=== PATIENT | female | born 1975 | race Caucasian/White ===

== ENCOUNTER 2018-04-03 09:51 | Emergency (ER) | payer BC ==
[2018-04-03] MEDS ORDERED: CYCLOBENZAPRINE 10 MG TAB PO STA (10:07)
[2018-04-03] MEDS ORDERED: KETOROLAC 30 MG/ML 1 ML VIAL IVP STA (10:07)
[2018-04-03] MEDS ORDERED: SODIUM CHLORIDE 0.9% 500 ML 500 ML IV STA (10:07)
[2018-04-03] MEDS ORDERED: ASPIRIN 81 MG PO STA (10:07)
--- NOTE | 2018-04-03 10:11 | ED ---
Chest Pain HPI - General Chief Complaint: Chest Pain Stated Complaint: Chest pain Time Seen by Provider: 04/03/18 09:58 Source: patient Mode of arrival: ambulatory Limitations: no limitations - History of Present Illness Initial Comments: 42-year-old female patient presents to the emergency department today for evaluation of right mid back pain and chest tightness. Patient states that back pain started Monday evening when she was switching laundry from the washer to the dryer. Patient states that she felt an immediate sharp pain to the area has been having increasing pain since. She denies any radiating pain to the legs. Denies any numbness or tingling to the lower extremities. Denies any saddle anesthesia or loss of bowel or bladder control. Patient states that she has had some mild muscle aches and pains of the back would never anything this severe. States that she is also having some chest tightness that started last evening. Patient states that the tightness has been constant since its onset. She denies any shortness of breath, sweats, nausea, vomiting, dizziness , or weakness. Patient does have family history of cardiac disease, father had heart transplant at age 42 with history of myocardial infarction. Patient denies any smoking history. Does not currently take any medications but does have a personal history of mitral valve prolapse and tachycardia. Patient denies any recent rash, fever, chills, diarrhea, constipation, hematuria, dysuria, urinary urgency, urinary frequency, headache, visual changes, or any other complaints. - Related Data Home Medications Medication Instructions Recorded Confirmed Ergocalciferol [Vitamin D2] 50,000 unit PO SA 04/03/18 04/03/18 Nortriptyline HCl 75 mg PO 04/03/18 04/03/18 QUEtiapine FUMARATE 50 mg PO HS 04/03/18 04/03/18 Previous Rx's Medication Instructions Recorded Cyclobenzaprine [Flexeril] 10 mg PO TID #15 tab 04/03/18 Ibuprofen [Motrin] 600 mg PO Q8HR PRN #30 tab 04/03/18 Allergies Allergy/AdvReac Type Severity Reaction Status Date / Time No Known Allergies Allergy Verified 04/03/18 10:13 Review of Systems ROS Statement: Those systems with pertinent positive or pertinent negative responses have been documented in the HPI. ROS Other: All systems not noted in ROS Statement are negative. EKG Findings - EKG Comments: EKG Findings:: EKG obtained at 1004 shows normal sinus rhythm with a prolonged QT interval. T-wave inversion in V3 and V4. Ventricular rate is 97, MD interval 202, QRS duration 80, QTc 534, QTC 678. No evidence of ST elevation or depression. Past Medical History Additional Past Medical History / Comment(s): tachycardia, mitral valve History of Any Multi-Drug Resistant Organisms: None Reported Past Surgical History: Adenoidectomy, Tonsillectomy Past Psychological History: Bipolar Smoking Status: Never smoker Past Alcohol Use History: None Reported Past Drug Use History: None Reported General Exam Limitations: no limitations General appearance: alert, in no apparent distress, other (This is a well- developed, well-nourished adult female patient in no acute distress. Vital signs upon presentation are temperature 97.7F, pulse 100, respirations 20, blood pressure 167/85, pulse ox 98% on room air.) Eye exam: Present: normal appearance, PERRL, EOMI. Absent: scleral icterus, conjunctival injection, periorbital swelling ENT exam: Present: normal exam, normal oropharynx, mucous membranes moist Respiratory exam: Present: normal lung sounds bilaterally. Absent: respiratory distress, wheezes, rales, rhonchi, stridor Cardiovascular Exam: Present: regular rate, normal rhythm, normal heart sounds. Absent: systolic murmur, diastolic murmur, rubs, gallop, clicks GI/Abdominal exam: Present: soft, normal bowel sounds. Absent: distended, tenderness, guarding, rebound, rigid Back exam: Present: normal inspection, tenderness (Tenderness over the right mid back musculature). Absent: vertebral tenderness Neurological exam: Present: alert, oriented X3, CN II-XII intact, other ( Strength in all 4 extremities is 5/5.) Psychiatric exam: Present: normal affect, normal mood Skin exam: Present: warm, dry, intact, normal color. Absent: rash Course Vital Signs 04/03/18 04/03/18 04/03/18 09:52 10:04 12:24 Temperature 97.7 F 97.8 F Pulse Rate 100 85 Respiratory 20 18 17 Rate Blood Pressure 167/85 152/99 O2 Sat by Pulse 98 95 Oximetry Chest Pain MDM - MDM RADIOLOGY: Two-view x-ray of the chest is obtained. Report was reviewed in its entirety. Impression by Dr. Ponce shows chronic-appearing changes, possible bronchitis or asthma. Is some patchy posterior basilar opacity in the lateral view the could represent atelectasis and less likely early infiltrate. MDM: 42-year-old female patient presents to emergency department today for complaints of right thoracic back pain. She is also reporting some mild chest tightness is started last night. Physical examination does reveal some musculoskeletal tenderness to the right mid back. Back pain started while she was doing laundry on Monday. Lungs are clear to auscultation with good air movement. Patient is not coughing. Labs reviewed and were unremarkable. Troponin negative. Two-view x-ray of the chest did reveal some atelectasis or early infiltrate however patient has no fever, no coughing, no shortness of breath services more likely atelectasis. I did discuss findings and results with the patient. She is instructed to follow-up with her primary care physician for recheck in 1-2 days. Will give ibuprofen and Flexeril for mechanical back pain. Return parameters were discussed in detail. She verbalizes understanding and agrees with this plan. Disposition Clinical Impression: Back strain, Chest pain Disposition: HOME SELF-CARE Condition: Good Instructions: Chest Pain (ED), Thoracic Back Strain (ED) Additional Instructions: Take medications as directed. Alternate heat to the painful area. Follow-up with your primary care physician for recheck in 1-2 days. Return immediately for any new, worsening, or concerning symptoms. Prescriptions: Cyclobenzaprine [Flexeril] 10 mg PO TID #15 tab Ibuprofen [Motrin] 600 mg PO Q8HR PRN #30 tab PRN Reason: Pain Is patient prescribed a controlled substance at d/c from ED?: No Referrals: Nonstaff,Physician [Primary Care Provider] - 1-2 days Time of Disposition: 12:06
[2018-04-03 10:42] LABS: Basophils # (A) 0.1 k/uL (0-0.2); Basophils % (A) 1 %; Eosinophils # (A) 0.3 k/uL (0-0.7); Eosinophils % (A) 4 %; HCT 41.7 % (34.0-46.0); HGB 13.9 gm/dL (11.4-16.0); Lymphocytes # (A) 1.6 k/uL (1.0-4.8); Lymphocytes % (A) 26 %; MCH 29.3 pg (25.0-35.0); MCHC 33.4 g/dL (31.0-37.0); MCV 87.7 fL (80.0-100.0); Mean Platelet Volume 7.3; Monocytes # (A) 0.3 k/uL (0-1.0); Monocytes % (A) 5 %; Neutrophils # (A) 3.9 k/uL (1.3-7.7); Neutrophils % (A) 62 %; Platelet Count 228 k/uL (150-450); RBC 4.75 m/uL (3.80-5.40); RDW 14.2 % (11.5-15.5); WBC 6.3 k/uL (3.8-10.6)
--- NOTE | 2018-04-03 10:50 | XR ---
EXAMINATION TYPE: XR chest 2V DATE OF EXAM: 04/03/2018 COMPARISON: None HISTORY: 42-year-old female with chest pain TECHNIQUE: PA and lateral views FINDINGS: The cardiomediastinal silhouette, aorta, and pulmonary vasculature are within normal limits. Mild int erstitial prominence in the chronic appearance. There is some patchy posterior basilar opacity on the lateral view. No pleural effusion. IMPRESSION: Chronic-appearing changes, possible bronchitis or asthma. There is some patchy posterior basilar opac ity on the lateral view that could represent atelectasis and less likely early infiltrate.
[2018-04-03 10:52] LABS: ALT 52 U/L (9-52); AST 43 U/L (14-36); Alkaline Phosphatase 51 U/L (38-126); Anion Gap 7 mmol/L; Blood Urea Nitrogen 10 mg/dL (7-17); Calcium 9.3 mg/dL (8.4-10.2); Carbon Dioxide 24 mmol/L (22-30); Chloride 108 mmol/L (98-107); Glucose 148 mg/dL (74-99); Magnesium 1.8 mg/dL (1.6-2.3); Potassium 4.4 mmol/L (3.5-5.1); Sodium 139 mmol/L (137-145); Total Bilirubin 0.5 mg/dL (0.2-1.3); Total Protein 6.8 g/dL (6.3-8.2)
[2018-04-03 10:54] LABS: Partial Thromboplastin Time 22.9 sec (22.0-30.0); Prothrombin Time 10.7 sec (9.0-12.0)
[2018-04-03 11:06] LABS: Creatine Kinase 65 U/L (30-135)
[2018-04-03 11:19] LABS: Creatine Kinase MB <0.2 ng/mL (0.0-2.4); Troponin I <0.012 ng/mL (0.000-0.034)
[2018-04-03 11:52] LABS: Appearance,Urine Cloudy (Clear); Bacteria,Urine Rare /hpf; Bilirubin,Urine Negative (Negative); Blood,Urine Large (Negative); Color,Urine Yellow; Glucose,Urine (UA) Negative (Negative); Ketones,Urine Negative (Negative); Leukocyte Esterase,Urine Small (Negative); Mucus,Urine Occasional /hpf; Nitrite,Urine Negative (Negative); PH, Urine 5.5 (5.0-8.0); Protein,Urine Trace (Negative); RBC,Urine 178 /hpf (0-5); Specific Gravity,Urine 1.014 (1.001-1.035); Squamous Epithelial Cell,Urine 21 /hpf (0-4); Urobilinogen,Urine <2.0 mg/dL (<2.0); WBC,Urine 6 /hpf (0-5)
[2018-04-03] MEDS ORDERED: CYCLOBENZAPRINE 10MG STARTER 3 TAB BTL PO STA (12:04)
[2018-04-03] MEDS ORDERED: IBUPROFEN 600 MG STARTER PACK 4 TAB BTL PO STA (12:04)
[2018-04-03 12:25] VITALS: BP 152/99; PULSE 85; RESP 17; TEMP 97.8
== END 2018-04-03 12:25 | disposition home or self-care (01) ==
LOC: EC 09:51
DX: S29.012A Strain of muscle and tendon of back wall of thorax, initial encounter (principal); R07.89 Other chest pain; R91.8 Other nonspecific abnormal finding of lung field; F31.9 Bipolar disorder, unspecified; Z79.899 Other long term (current) drug therapy; Z82.49 Family history of ischemic heart disease and other diseases of the circulatory system; X58.XXXA Exposure to other specified factors, initial encounter
CPT/HCPCS: 36415; 93005; 80053; 82550; 82553; 83735; 84484; 85025; 85610; 85730; 81001; 71046; 99285; 96374; 96361; J1885

== ENCOUNTER → 2019-09-17 | Outpatient (CLI) | payer BC ==
[2019-09-17 12:04] LABS: Basophils # (A) 0.1 k/uL (0-0.2); Basophils % (A) 1 %; Eosinophils # (A) 0.2 k/uL (0-0.7); Eosinophils % (A) 2 %; HCT 46.3 % (34.0-46.0); HGB 15.5 gm/dL (11.4-16.0); Lymphocytes # (A) 2.3 k/uL (1.0-4.8); Lymphocytes % (A) 30 %; MCH 30.2 pg (25.0-35.0); MCHC 33.6 g/dL (31.0-37.0); MCV 90.1 fL (80.0-100.0); Mean Platelet Volume 8.1; Monocytes # (A) 0.3 k/uL (0-1.0); Monocytes % (A) 4 %; Neutrophils # (A) 4.7 k/uL (1.3-7.7); Neutrophils % (A) 61 %; Platelet Count 275 k/uL (150-450); RBC 5.14 m/uL (3.80-5.40); RDW 13.3 % (11.5-15.5); WBC 7.6 k/uL (3.8-10.6)
[2019-09-17 19:40] LABS: African American GFR (CKD) 103.9 (60.0-200.0); Albumin 4.8 g/dL (3.80-4.90); Albumin/Globulin Ratio 2.4 (1.60-3.17); Anion Gap 12.6 mmol/L (4.00-12.00); BUN/Creat Ratio 12.5 Ratio (12.00-20.00); Calcium 9.8 mg/dL (8.7-10.3); Carbon Dioxide 22.4 mmol/L (21.6-31.8); Chol/HDL Ratio 4.67; Non-African American GFR(CKD) 89.7 (60.0-200.0); Potassium 4.1 mmol/L (3.5-5.5); Total Bilirubin 0.4 mg/dL (0.2-1.2); Total Protein 6.8 g/dL (6.2-8.2)
== END | disposition home or self-care (01) ==
LOC: LABWHC1 10:28
PROVIDERS: ATTEND Internal Medicine Cardiovascular Disease
DX: R07.9 Chest pain, unspecified (principal); R00.2 Palpitations
CPT/HCPCS: 36415; 80053; 80061; 84443; 85025

== ENCOUNTER → 2020-11-13 | Outpatient (CLI) | payer BC ==
[2020-11-13 09:28] LABS: Creatinine,Urine Random 84.9 mg/dL; Protein/Creatinine Ratio,Urine 0.601
[2020-11-13 11:19] LABS: Basophils # (A) 0.04 X 10*3/uL (0.00-0.10); Basophils % (A) 0.5 %; Eosinophils # (A) 0.18 X 10*3/uL (0.04-0.35); Eosinophils % (A) 2.4 %; HCT 43.1 % (37.2-46.3); HGB 14.4 g/dL (12.0-15.0); Lymphocytes % (A) 30.2 %; MCH 29.6 pg (27.0-32.0); MCHC 33.4 g/dL (32.0-37.0); MCV 88.7 fL (80.0-97.0); Mean Platelet Volume 11.5 fL (9.5-12.2); Monocytes # (A) 0.47 X 10*3/uL (0.20-1.00); Monocytes % (A) 6.2 %; Neutrophils # (A) 4.61 X 10*3/uL (1.80-7.70); Neutrophils % (A) 60.4 %; Platelet Count 271 X 10*3/uL (140-440); RBC 4.86 X 10*6/uL (4.10-5.20); RDW 13.2 % (11.5-14.5); WBC 7.62 X 10*3/uL (4.50-10.00)
[2020-11-13 11:33] LABS: Basophils # (A) 0.06 X 10*3/uL (0.00-0.10); Basophils % (A) 0.7 %; Eosinophils # (A) 0.48 X 10*3/uL (0.04-0.35); Eosinophils % (A) 5.5 %; HCT 35.9 % (37.2-46.3); HGB 10.8 g/dL (12.0-15.0); Lymphocytes # (A) 2.17 X 10*3/uL (0.90-5.00); Lymphocytes % (A) 24.7 %; MCH 26.2 pg (27.0-32.0); MCHC 30.1 g/dL (32.0-37.0); MCV 86.9 fL (80.0-97.0); Mean Platelet Volume 9.7 fL (9.5-12.2); Monocytes # (A) 0.47 X 10*3/uL (0.20-1.00); Monocytes % (A) 5.3 %; Neutrophils # (A) 5.52 X 10*3/uL (1.80-7.70); Neutrophils % (A) 62.8 %; Platelet Count 289 X 10*3/uL (140-440); RBC 4.13 X 10*6/uL (4.10-5.20); RDW 13.4 % (11.5-14.5); WBC 8.79 X 10*3/uL (4.50-10.00)
[2020-11-13 13:25] LABS: African American GFR (CKD) 70.2 (60.0-200.0); Albumin 4.7 g/dL (3.80-4.90); Albumin/Globulin Ratio 1.96 (1.60-3.17); Anion Gap 11.7 mmol/L (4.00-12.00); BUN/Creat Ratio 20.91 Ratio (12.00-20.00); Calcium 9.6 mg/dL (8.7-10.3); Carbon Dioxide 23.3 mmol/L (21.6-31.8); Chol/HDL Ratio 3.74; Globulin 2.4 g/dL (1.6-3.3); LDL Cholesterol,Calculated 54.4 mg/dL (0.0-131.0); Non-African American GFR(CKD) 60.6 (60.0-200.0); Total Bilirubin 0.3 mg/dL (0.3-1.2); Total Protein 7.1 g/dL (6.2-8.2); VLDL Calculation 52.6 mg/dL (5.00-40.00)
[2020-11-13 14:58] LABS: Hemoglobin A1C 6.6 % (4.0-6.0)
[2020-11-13 15:18] LABS: % Iron Saturation 15.51 (12.00-45.00); African American GFR (CKD) 89.5 (60.0-200.0); Albumin 4.6 g/dL (3.80-4.90); Anion Gap 13.8 mmol/L (4.00-12.00); BUN/Creat Ratio 14.44 Ratio (12.00-20.00); Calcium 9.7 mg/dL (8.7-10.3); Carbon Dioxide 19.2 mmol/L (21.6-31.8); Globulin 2.3 g/dL (1.6-3.3); Magnesium 1.9 mg/dL (1.5-2.4); Non-African American GFR(CKD) 77.2 (60.0-200.0); Phosphorus 3.8 mg/dL (2.4-5.1); Potassium 4.1 mmol/L (3.5-5.5); Total Bilirubin 0.4 mg/dL (0.3-1.2); Total Protein 6.9 g/dL (6.2-8.2)
== END | disposition home or self-care (01) ==
LOC: LABWHC1 07:27
DX: Z00.00 Encounter for general adult medical examination without abnormal findings (principal); F31.81 Bipolar II disorder; E55.9 Vitamin D deficiency, unspecified; E88.81 Metabolic syndrome and other insulin resistance
CPT/HCPCS: 36415; 80053; 80061; 82306; 82570; 83036; 83540; 83550; 83735; 83970; 84100; 84156; 84443; 85025

== ENCOUNTER 2022-10-28 08:55 | Observation (INO) | payer BC ==
[2022-10-28 09:45] LABS: Basophils % (A) 0 %; Eosinophils # (A) 0.1 k/uL (0-0.7); Eosinophils % (A) 2 %; HCT 40.9 % (34.0-46.0); HGB 14.5 gm/dL (11.4-16.0); Lymphocytes # (A) 1.9 k/uL (1.0-4.8); Lymphocytes % (A) 28 %; MCH 31.9 pg (25.0-35.0); MCHC 35.4 g/dL (31.0-37.0); Mean Platelet Volume 8.5; Monocytes # (A) 0.4 k/uL (0-1.0); Monocytes % (A) 6 %; Neutrophils # (A) 4.2 k/uL (1.3-7.7); Neutrophils % (A) 61 %; Platelet Count 172 k/uL (150-450); RBC 4.55 m/uL (3.80-5.40); RDW 14.3 % (11.5-15.5); WBC 6.9 k/uL (3.8-10.6)
[2022-10-28 10:01] LABS: ALT 35 U/L (4-34); AST 28 U/L (14-36); African American GFR (CKD) >90 (>60 ml/min/1.73 sqM); Albumin 3.7 g/dL (3.5-5.0); Alkaline Phosphatase 66 U/L (38-126); Anion Gap 11 mmol/L; Blood Urea Nitrogen 7 mg/dL (7-17); Calcium 8.7 mg/dL (8.4-10.2); Carbon Dioxide 20 mmol/L (22-30); Chloride 106 mmol/L (98-107); Glucose 212 mg/dL (74-99); Non-African American GFR(CKD) >90 (>60 ml/min/1.73 sqM); Potassium 3.7 mmol/L (3.5-5.1); Sodium 137 mmol/L (137-145); Total Bilirubin 0.7 mg/dL (0.2-1.3); Total Protein 6.3 g/dL (6.3-8.2)
--- NOTE | 2022-10-28 10:07 | XR ---
EXAMINATION TYPE: XR chest 2V DATE OF EXAM: 10/28/2022 COMPARISON: NONE HISTORY: Chest pain TECHNIQUE: Frontal and lateral views of the chest are obtained. FINDINGS: There is no focal air space opacity. No evidence for pneumothorax. No pleural effusion. The cardiac silhouette size is within normal limits. The osseous structures are grossly intact. IMPRESSION: 1. No acute cardiopulmonary process.
[2022-10-28 10:09] LABS: Partial Thromboplastin Time 21.9 sec (22.0-30.0); Prothrombin Time 10.9 sec (9.0-12.0)
--- NOTE | 2022-10-28 10:11 | ED ---
SOB HPI - General Chief Complaint: Shortness of Breath Stated Complaint: Low O2/SOB Time Seen by Provider: 10/28/22 09:08 Source: patient Mode of arrival: ambulatory Limitations: no limitations - History of Present Illness Initial Comments: Patient is a 46-year-old female presenting to the emergency room with complaints of difficulty in breathing with hypoxemia noted at home. She reports that she started with an albuterol inhaler for oxygen levels in the upper 80s at home but has continued to be persistently in the upper 80s low 90s despite use of the inhaler with continued dyspneic feeling. She is complaining of chest heaviness midsternal which is reproducible in addition to her shortness of breath. She states that she was attending PT for her chronic back pain with sciatica which was improving with physical therapy and yesterday she received a significant deep tissue massage to her back and since that time she has had pain in her ribs and her increased difficulty in breathing with chest heaviness. She denies any orthopnea, sleep apnea, diaphoresis, cough, congestion, abdominal pain, nausea, vomiting, dizziness, headache, fevers or chills. She has a past medical history significant for bipolar depression and chronic back pain along with intermittent tachycardia an obesity. - Related Data Home Medications Medication Instructions Recorded Confirmed Nortriptyline HCl 75 mg PO HS 04/03/18 10/28/22 QUEtiapine FUMARATE 50 mg PO HS 04/03/18 10/28/22 Albuterol Sulfate [Albuterol 2 puff INHALATION RT-QID PRN 10/28/22 10/28/22 Sulfate Hfa] Ergocalciferol [Vitamin D2 (1250 1,250 mcg PO TORIBIO 10/28/22 10/28/22 Mcg = 90776 Iu)] L.acidoph,Paracasei, B.lactis 1 cap PO HS 10/28/22 10/28/22 [Probiotic] Allergies Allergy/AdvReac Type Severity Reaction Status Date / Time No Known Allergies Allergy Verified 10/28/22 12:35 Review of Systems ROS Statement: Those systems with pertinent positive or pertinent negative responses have been documented in the HPI. ROS Other: All systems not noted in ROS Statement are negative. Past Medical History Additional Past Medical History / Comment(s): tachycardia, mitral valve History of Any Multi-Drug Resistant Organisms: None Reported Past Surgical History: Adenoidectomy, Tonsillectomy Past Psychological History: Bipolar Smoking Status: Never smoker Past Alcohol Use History: None Reported Past Drug Use History: None Reported General Exam Limitations: no limitations General appearance: alert, in no apparent distress Head exam: Present: atraumatic, normocephalic, normal inspection Respiratory exam: Present: chest wall tenderness, decreased breath sounds (Bibasal). Absent: respiratory distress, wheezes, rales, rhonchi, stridor, accessory muscle use Cardiovascular Exam: Present: regular rate, normal rhythm, normal heart sounds. Absent: systolic murmur, diastolic murmur, rubs, gallop, clicks GI/Abdominal exam: Present: soft, normal bowel sounds. Absent: distended, tenderness, guarding, rebound, rigid Extremities exam: Present: normal inspection, normal capillary refill. Absent: pedal edema, joint swelling, calf tenderness Back exam: Present: normal inspection, full ROM, tenderness (Generalized upper). Absent: muscle spasm, paraspinal tenderness, vertebral tenderness Neurological exam: Present: alert, oriented X3, CN II-XII intact Psychiatric exam: Present: normal affect, normal mood Skin exam: Present: warm, dry, intact, normal color. Absent: rash Course Vital Signs 10/28/22 10/28/22 10/28/22 08:57 09:00 12:23 Temperature 98.2 F 99.0 F Pulse Rate 98 85 Respiratory 20 16 Rate Blood Pressure 145/94 124/85 O2 Sat by Pulse 93 L 93 L 94 L Oximetry Medical Decision Making - Medical Decision Making Was pt. sent in by a medical professional or institution (, PA, CERTIFIED PHYSICIAN ASSISTANT, urgent ca re, hospital, or senior living...) When possible be specific @ -No Did you speak to anyone other than the patient for history (EMS, parent, family, police, friend...)? What history was obtained from this source @ -No Did you review nursing and triage notes (agree or disagree)? Why? @ -I reviewed and agree with nursing and triage notes Were old charts reviewed (outside hosp., previous admission, EMS record, old EKG, old radiological studies, urgent care reports/EKG's, senior living records)? Report findings @ -No old charts were reviewed Differential Diagnosis (chest pain, altered mental status, abdominal pain women, abdominal pain men, vaginal bleeding, weakness, fever, dyspnea, syncope, headache, dizziness, GI bleed, back pain, seizure, CVA, palpatations, mental health, musculoskeletal)? @ -Differential Dyspnea: Coronary syndrome, arrhythmia, tamponade, asthma, COPD, pulmonary embolism, pneumonia, pneumothorax, pulmonary effusion, anaphylaxis, diabetic ketoacidosis, flailed chest, pulmonary contusion, diaphragmatic rupture, anemia, neuromuscular, this is not meant to be an all-inclusive list. EKG interpreted by me (3pts min.). @ -Sinus rhythm, ventricular rate 92 bpm, MD interval 195 ms, QRS duration 79 ms, QT/QTC 325/425 ms, PRT axes 17, -29, -2 X-rays interpreted by me (1pt min.). @ -Chest x-ray two-view: No acute cardiopulmonary process, no consolidation, infiltrate or pleural effusion X-ray bilateral ribs: No acute osseous fractures or dislocations. CT interpreted by me (1pt min.). @ -CTA chest: Bilateral PEs and the U/S interpreted by me (1pt. min.). @ -None done What testing was considered but not performed or refused? (CT, X-rays, U/S, labs)? Why? @ -None What meds were considered but not given or refused? Why? @ -Analgesics offered and declined. Did you discuss the management of the patient with other professionals (professionals i.e. , PA, CERTIFIED PHYSICIAN ASSISTANT, lab, RT, psych nurse, oncology social work, metal coater operator, teacher, corporate development officer, binder caser)? Give summary @ -No however my attending Dr. Cisneros spoke with the radiologist regarding callback for positive pulmonary emboli. Was smoking cessation discussed for >3mins.? @ -No Was critical care preformed (if so, how long)? @ -No Were there social determinants of health that impacted care today? How? (Homelessness, low income, unemployed, alcoholism, drug addiction, transportation, low edu. Level, literacy, decrease access to med. care, penitentiary, rehab)? @ -No Was there de-escalation of care discussed even if they declined (Discuss DNR or withdrawal of care, Hospice)? DNR status @ -No What co-morbidities impacted this encounter? (DM, HTN, Smoking, COPD, CAD, Cancer, CVA, ARF, Chemo, Hep., AIDS, mental health diagnosis, sleep apnea, morbid obesity)? @ -None Was patient admitted / discharged? Hospital course, mention meds given and route, prescriptions, significant lab abnormalities, going to OR and other pertinent info. @ -46-year-old female presenting to the emergency room with complaints of difficulty in breathing with hypoxemia noted at home. No significant change with an albuterol inhaler. Complaining of chest heaviness midsternal which is reproducible in addition to her shortness of breath. Will start workup for dyspnea with EKG, chest x-ray, x-ray of ribs given pain after manipulation the low probability of fracture, CBC, CMP, magnesium, troponin, lactic acid, d-dimer and viral swab for influenza, RSV and COVID. Analgesics offered and declined. Saturating 91-92% on room air will keep on room air at this time. Chest x-ray without any acute cardiopulmonary process, EKG shows sinus rhythm without any acute changes, CBC without abnormalities. Coags show low PTT at 21.9, PTT and INR normal. D-dimer elevated 2.76, CMP with elevated ALT at 35 normal AST and bilirubin. Random glucose elevated at 212. Carbon dioxide low at 20 all of remaining electrolytes normal including potassium and magnesium. Renal function normal. Troponin negative. Viral swabbing for Covid, RSV and influenza are negative. Will proceed with CTA of the chest to evaluate for PE and aortic dissection in the setting of elevated d-dimer with shortness of breath with mild hypoxemia and chest heaviness. CT of the chest demonstrate bilateral PEs per radiologist report no evidence of right-sided heart strain. Echocardiogram and high intensity heparin infusion started. Findings discussed with patient regarding identification of bilateral pulmonary emboli and the need for anticoagulation. She verbalized understanding of her diagnosis and denied any questions due to her mother previously having pulmonary emboli since well. Dr. Bauer page multiple times with no callback as he is; patient does not live locally will place admission to him with consult to pulmonary and vascular. Will limit patient in stable condition on high intensity heparin therapy for further evaluation and treatment of bilateral pulmonary emboli. Undiagnosed new problem with uncertain prognosis? @ -No Drug Therapy requiring intensive monitoring for toxicity (Heparin, Nitro, Insulin, Cardizem)? @ -No Were any procedures done? @ -No Diagnosis/symptom? @ - bilateral pulmonary emboli Acute, or Chronic, or Acute on Chronic? @ -Acute Uncomplicated (without systemic symptoms) or Complicated (systemic symptoms)? @ - Complicated Side effects of treatment? @ -No Exacerbation, Progression, or Severe Exacerbation? @ -No Poses a threat to life or bodily function? How? (Chest pain, [place], MA, pneumonia, PE, COPD, DKA, ARF, appy, cholecystitis, CVA, Diverticulitis, Homicidal, Suicidal, threat to staff... and all critical care pts) @ -Yes, risk for worsening hypoxemia and respiratory arrest. Case discussed with Dr. Cisneros. - Lab Data Result diagrams: 10/28/22 09:18 10/28/22 09:18 Lab Results 10/28/22 10/28/22 10/28/22 Range/Units 09:18 09:18 09:18 WBC 6.9 (3.8-10.6) k/uL RBC 4.55 (3.80-5.40) m/uL Hgb 14.5 (11.4-16.0) gm/dL Hct 40.9 (34.0-46.0) % MCV 90.0 (80.0-100.0) fL MCH 31.9 (25.0-35.0) pg MCHC 35.4 (31.0-37.0) g/dL RDW 14.3 (11.5-15.5) % Plt Count 172 (150-450) k/uL MPV 8.5 Neutrophils % 61 % Lymphocytes % 28 % Monocytes % 6 % Eosinophils % 2 % Basophils % 0 % Neutrophils # 4.2 (1.3-7.7) k/uL Lymphocytes # 1.9 (1.0-4.8) k/uL Monocytes # 0.4 (0-1.0) k/uL Eosinophils # 0.1 (0-0.7) k/uL Basophils # 0.0 (0-0.2) k/uL PT 10.9 (9.0-12.0) sec INR 1.0 (<1.2) APTT 21.9 L (22.0-30.0) sec D-Dimer 2.76 H (<0.60) mg/L FEU Sodium 137 (137-145) mmol/L Potassium 3.7 (3.5-5.1) mmol/L Chloride 106 (98-107) mmol/L Carbon Dioxide 20 L (22-30) mmol/L Anion Gap 11 mmol/L BUN 7 (7-17) mg/dL Creatinine 0.64 (0.52-1.04) mg/dL Est GFR (CKD-EPI)AfAm >90 (>60 ml/min/1.73 sqM) Est GFR (CKD-EPI)NonAf >90 (>60 ml/min/1.73 sqM) Glucose 212 H (74-99) mg/dL Plasma Lactic Acid Charly (0.7-2.0) mmol/L Calcium 8.7 (8.4-10.2) mg/dL Magnesium 2.0 (1.6-2.3) mg/dL Total Bilirubin 0.7 (0.2-1.3) mg/dL AST 28 (14-36) U/L ALT 35 H (4-34) U/L Alkaline Phosphatase 66 (38-126) U/L Troponin I (0.000-0.034) ng/mL Total Protein 6.3 (6.3-8.2) g/dL Albumin 3.7 (3.5-5.0) g/dL Influenza Type A (PCR) (Not Detectd) Influenza Type B (PCR) (Not Detectd) RSV (PCR) (Not Detectd) SARS-CoV-2 (PCR) (Not Detectd) 10/28/22 10/28/22 10/28/22 Range/Units 09:18 09:18 09:30 WBC (3.8-10.6) k/uL RBC (3.80-5.40) m/uL Hgb (11.4-16.0) gm/dL Hct (34.0-46.0) % MCV (80.0-100.0) fL MCH (25.0-35.0) pg MCHC (31.0-37.0) g/dL RDW (11.5-15.5) % Plt Count (150-450) k/uL MPV Neutrophils % % Lymphocytes % % Monocytes % % Eosinophils % % Basophils % % Neutrophils # (1.3-7.7) k/uL Lymphocytes # (1.0-4.8) k/uL Monocytes # (0-1.0) k/uL Eosinophils # (0-0.7) k/uL Basophils # (0-0.2) k/uL PT (9.0-12.0) sec INR (<1.2) APTT (22.0-30.0) sec D-Dimer (<0.60) mg/L FEU Sodium (137-145) mmol/L Potassium (3.5-5.1) mmol/L Chloride (98-107) mmol/L Carbon Dioxide (22-30) mmol/L Anion Gap mmol/L BUN (7-17) mg/dL Creatinine (0.52-1.04) mg/dL Est GFR (CKD-EPI)AfAm (>60 ml/min/1.73 sqM) Est GFR (CKD-EPI)NonAf (>60 ml/min/1.73 sqM) Glucose (74-99) mg/dL Plasma Lactic Acid Charly 1.3 (0.7-2.0) mmol/L Calcium (8.4-10.2) mg/dL Magnesium (1.6-2.3) mg/dL Total Bilirubin (0.2-1.3) mg/dL AST (14-36) U/L ALT (4-34) U/L Alkaline Phosphatase (38-126) U/L Troponin I <0.012 (0.000-0.034) ng/mL Total Protein (6.3-8.2) g/dL Albumin (3.5-5.0) g/dL Influenza Type A (PCR) Not Detected (Not Detectd) Influenza Type B (PCR) Not Detected (Not Detectd) RSV (PCR) Not Detected (Not Detectd) SARS-CoV-2 (PCR) Not Detected (Not Detectd) - Radiology Data Radiology results: report reviewed, image reviewed Disposition Clinical Impression: Pulmonary embolism Disposition: ADMITTED IP TO THIS [facility] Condition: Stable Referrals: Nonstaff,Physician [REFERRING] - 1-2 days Time of Disposition: 11:43
--- NOTE | 2022-10-28 10:48 | XR ---
EXAMINATION TYPE: XR ribs bilateral DATE OF EXAM: 10/28/2022 COMPARISON: NONE HISTORY: 46-year-old female bilateral posterior rib pain after injury TECHNIQUE: 9 views FINDINGS: No displaced rib fractures seen on either side. No pneumothorax or pleural effusion identified. IMPRESSION: No displaced rib fracture identified.
--- NOTE | 2022-10-28 11:21 | CT ---
EXAMINATION TYPE: CT angio chest DATE OF EXAM: 10/28/2022 COMPARISON: None HISTORY: Elevated D-dimer; SOB CT DLP: 591.6 mGycm CONTRAST: CT chest with contrast and 3D reconstruction with MIP imaging is performed without and with IV Contra st, patient injected with 100 ml mL of Isovue 370. Contrast-enhanced CT of the chest was performed through the course of the pulmonary arteries with alexander g and mediastinal window settings submitted. 3D reconstruction with MIP imaging was also performed. PULMONARY ARTERIES: Moderate pulmonary embolism noted within the main pulmonary arteries bilaterally right greater than left. There are also filling defects seen within third order and subsegmental bran ches bilaterally within the right lower lobe, left lower lobe and left upper lobe. No evidence for ri ght heart strain at this time. No saddle component identified. LUNGS: The lungs are clear and free of infiltrate. Mild compressive atelectasis left lung base. No pu lmonary nodule or mass is detected. No pleural effusion. MEDIASTINUM: Thoracic aorta is of normal caliber. Small hiatal hernia noted. The heart is not enlarg ed. No evidence for mediastinal mass. No mediastinal lymph nodes greater than 1cm. HILAR STRUCTURES: No evidence for mass. No hilar lymph nodes greater than 1 cm. UPPER ABDOMEN: Partially imaged left renal cyst. IMPRESSION: 1. Findings are compatible with pulmonary embolism as discussed above. No evidence for right heart s train.
[2022-10-28] MEDS ORDERED: HEPARIN SODIUM 1,000 UN/ML (10ML VL) IV PRN (11:23)
[2022-10-28] MEDS ORDERED: HEPARIN SODIUM 1,000 UN/ML (10ML VL) IV ONE (11:23)
[2022-10-28] MEDS ORDERED: NALOXONE 0.4 MG/ML 1 ML VIAL IV PRN (11:43)
[2022-10-28] MEDS: HEPARIN SOD,PORK IN 0.45% NACL 25,000 UNIT in 0.45% NACL 1 250ML.BAG IV SCH ×2 (12:24→20:38)
--- NOTE | 2022-10-28 14:31 | P.GSCN ---
History of Present Illness Consult date: 10/28/22 Reason for Consult: Pulmonary embolism Requesting physician: Kyleigh Castillo History of present illness: This is a pleasant 46-year-old female with a past medical history of tachycardia and mitral valve prolapse presented to the emergency department with complaints of shortness of breath and having difficulty catching her breath. Patient states she had pulse oximetry at home and she was in the 70s and 80% on her o xygen saturation. She used an albuterol hand inhaler twice with no improvement so she came to the emergency department for further evaluation. Patient had blood work that showed a positive d-dimer. She underwent a CT angiogram of the chest which reported moderate pulmonary embolism noted within main pulmonary arteries bilaterally right greater than left. Filling defects seen within third order and subsegmental branches bilaterally within the right lower lobe, left lower lobe and left upper lobe. No evidence for right heart strain. No saddle component identified. Patient states she still feels some heaviness in her chest like she just can't catch her breath. She is currently not on any oxygen supplementation. Oxygen saturation fluctuating between high 80s and low 90s. Patient does have dark black nail gel on. Once nail gel was removed oxygen saturation maintaining and 9495 percentile on room air. Heart rate 89 blood pressure 124/85. She denies any previous history of DVT or pulmonary embolism. States her mother has a history of sarcoidosis and was first diagnosed as a pulmonary embolism. She does state that she did drive long car ride about 3-4 weeks ago to [place] from [place]. She has also noted some sciatic and low back pain with radiation down her left leg. She's also noted some swelling in her left lower extremity and ankle. She thought that this was related to a previous ankle injury. She is currently on a heparin drip. Review of Systems A 14 point review systems was completed all pertinent positives and negatives as stated in the HPI. Past Medical History Additional Past Medical History / Comment(s): tachycardia, mitral valve History of Any Multi-Drug Resistant Organisms: None Reported Past Surgical History: Adenoidectomy, Tonsillectomy Past Psychological History: Bipolar Smoking Status: Never smoker Past Alcohol Use History: None Reported Past Drug Use History: None Reported Medications and Allergies Home Medications Medication Instructions Recorded Confirmed Type Nortriptyline HCl 75 mg PO HS 04/03/18 10/28/22 History QUEtiapine FUMARATE 50 mg PO HS 04/03/18 10/28/22 History Albuterol Sulfate [Albuterol 2 puff INHALATION RT-QID PRN 10/28/22 10/28/22 History Sulfate Hfa] Ergocalciferol [Vitamin D2 (1250 1,250 mcg PO TORIBIO 10/28/22 10/28/22 History Mcg = 33149 Iu)] L.acidoph,Paracasei, B.lactis 1 cap PO HS 10/28/22 10/28/22 History [Probiotic] Allergies Allergy/AdvReac Type Severity Reaction Status Date / Time No Known Allergies Allergy Verified 10/28/22 12:35 Surgical - Exam Vital Signs Temp Pulse Resp BP Pulse Ox 98.2 F 98 20 145/94 93 L 10/28/22 08:57 10/28/22 08:57 10/28/22 08:57 10/28/22 08:57 10/28/22 08:57 General appearance: The patient is alert, oriented, appears in no acute distress. HET: Head is normocephalic and atraumatic. Pupils are equal and reactive. Neck: Supple. Heart: Regular. Lungs: Equal expansion, normal respiratory effort. Abdomen: Soft, nontender, nondistended. Extremities: Normal skin color and turgor. Palpable bilateral DP pulses. Left foot ankle swelling. Neurological: No focal deficits. Strength and sensation are grossly intact. Results - Labs 10/28/22 09:18 10/28/22 09:18 Abnormal Lab Results - Last 24 Hours (Table) 10/28/22 10/28/22 Range/Units 09:18 09:18 APTT 21.9 L (22.0-30.0) sec D-Dimer 2.76 H (<0.60) mg/L FEU Carbon Dioxide 20 L (22-30) mmol/L Glucose 212 H (74-99) mg/dL ALT 35 H (4-34) U/L Diabetes panel 10/28/22 Range/Units 09:18 Sodium 137 (137-145) mmol/L Potassium 3.7 (3.5-5.1) mmol/L Chloride 106 (98-107) mmol/L Carbon Dioxide 20 L (22-30) mmol/L BUN 7 (7-17) mg/dL Creatinine 0.64 (0.52-1.04) mg/dL Glucose 212 H (74-99) mg/dL Calcium 8.7 (8.4-10.2) mg/dL AST 28 (14-36) U/L ALT 35 H (4-34) U/L Alkaline Phosphatase 66 (38-126) U/L Total Protein 6.3 (6.3-8.2) g/dL Albumin 3.7 (3.5-5.0) g/dL Calcium panel 10/28/22 Range/Units 09:18 Calcium 8.7 (8.4-10.2) mg/dL Albumin 3.7 (3.5-5.0) g/dL Pituitary panel 10/28/22 Range/Units 09:18 Sodium 137 (137-145) mmol/L Potassium 3.7 (3.5-5.1) mmol/L Chloride 106 (98-107) mmol/L Carbon Dioxide 20 L (22-30) mmol/L BUN 7 (7-17) mg/dL Creatinine 0.64 (0.52-1.04) mg/dL Glucose 212 H (74-99) mg/dL Calcium 8.7 (8.4-10.2) mg/dL Adrenal panel 10/28/22 Range/Units 09:18 Sodium 137 (137-145) mmol/L Potassium 3.7 (3.5-5.1) mmol/L Chloride 106 (98-107) mmol/L Carbon Dioxide 20 L (22-30) mmol/L BUN 7 (7-17) mg/dL Creatinine 0.64 (0.52-1.04) mg/dL Glucose 212 H (74-99) mg/dL Calcium 8.7 (8.4-10.2) mg/dL Total Bilirubin 0.7 (0.2-1.3) mg/dL AST 28 (14-36) U/L ALT 35 H (4-34) U/L Alkaline Phosphatase 66 (38-126) U/L Total Protein 6.3 (6.3-8.2) g/dL Albumin 3.7 (3.5-5.0) g/dL Assessment and Plan Assessment: 1. Bilateral pulmonary embolism without evidence of right heart strain on CT angiogram chest, possibly provoked from recent traveling 3-4 weeks ago 2. Shortness of breath 3. Obesity 4. History of tachycardia 5. History of mitral valve prolapse Plan: 1. Continue heparin drip 2. Venous duplex ordered 3. Echocardiogram ordered, currently pending 4. We Do not anticipate Estefany needing any vascular surgical intervention 5. If echocardiogram negative for right heart strain may transition to oral anticoagulation of your choice Thank you for this consultation, we will continue to follow. The impression and plan of care has been dictated as directed. I performed a history and examination of this patient, discussed the same with the dictator. I agree with the dictator's note ,documented as a scribe. Any additional findings or plans will be noted.
--- NOTE | 2022-10-28 16:15 | US ---
EXAMINATION TYPE: US venous doppler duplex LE BI DATE OF EXAM: 10/28/2022 4:02 PM COMPARISON: NONE CLINICAL INDICATION: Female, 46 years old with history of elevated d-dimer, PE; PE. Elevated D-Dimer. Left leg pain SIDE PERFORMED: bilateral TECHNIQUE: The lower extremity deep venous system is examined utilizing real time linear array sonog larry with graded compression, doppler sonography and color-flow sonography. VESSELS IMAGED: Common Femoral Vein Deep Femoral Vein Greater Saphenous Vein * Femoral Vein Popliteal Vein Small Saphenous Vein * Proximal Calf Veins (* superficial vessels) Right Leg: No evidence of DVT Left Leg: +positive for DVT left femoral vein lower extending into popliteal vein IMPRESSION: Positive deep vein to most of the left femoral vein. Findings communicated to Dr. Bill Groves MD on 10/28/2022 4:[address] Moe Rhodes.
--- NOTE | 2022-10-28 17:12 | P.HPIM ---
History of Present Illness H&P Date: 10/28/22 46-year-old female with PMH of MVP, bipolar disorder presents the ED for shortness of breath. Patient reports shortness of breath especially with exertion started yesterday. She also reports lightheadedness. She checked her pulse ox which revealed an O2 saturation of 80% on room air. Of note, patient reports traveling from [place] to [place] on September 20. She does not smoke cigarettes. She also reports left lower extremity pain which she related to sciatica. In the ED, her vital signs were stable. CBC was unremarkable. APTT was 21.9. D-dimer was 2.76. CMP showed bicarb of 20, glucose of 212, ALT of 35. Troponin was less than 0.012. Lactic acid 1.3. Influenza, RSV, COVID-[address] chest was positive for PE. Chest x-ray negative. Rib x-ray negative. Venous duplex revealed DVT in the left lower extremity. Pertinent positives and negatives as discussed in HPI, a complete review of systems was performed and all other systems are negative. General: non toxic, no distress, appears at stated age Derm: warm, dry Head: atraumatic, normocephalic, symmetric Eyes: EOMI, no lid lag, anicteric sclera Mouth: no lip lesion, mucus membranes moist Cardiovascular: S1S2 reg, no murmur, positive posterior tibial pulse bilateral, Lungs: CTA bilateral, no rhonchi, no rales , no accessory muscle use Ext: no gross muscle atrophy, no edema, no contractures Neuro: no focal neuro deficits Psych: Alert, oriented, appropriate affect Acute hypoxic respiratory failure secondary to PE Provoked DVT Metabolic acidosis Hyperglycemia Bipolar disorder Based on my assessment of this patient, this patient meets a high complexity level of care. Patient has an acute diagnosis of pulmonary embolus that poses a threat to life or bodily function. Acute hypoxic respiratory failure secondary to PE: Likely due to immobilization. Continue Heparin drip. Telemetry monitoring. Transition to NOAC tomorrow. Obtain echocardiogram. Pulmonology and vascular surgery consulted. Provoked DVT: Management as above. Hyperglycemia: Obtain hemoglobin A1c. Bipolar disorder: Restart Seroquel 50 mg by mouth at bedtime. Restart nortriptyline 75 mg by mouth at bedtime. Decision maker: Lili FULL CODE Heparin drip for DVT prophylaxis. I have reviewed the following transportation consultant notes: Vascular Sx note reviewed. I have reviewed the results of the following tests: CBC, CMP, coagulation panel, d-dimer, troponin, lactic acid, influenza, RSV, COVID-19, CTA chest, venous duplex. I have ordered the following tests: Echocardiogram. Hemoglobin A1c. I have discussed the care of this patient with the following independent historian: I have independently interpreted the following test below: CXR as above. I have discussed the management of this patient with the following physician: This patient has a high risk of morbidity due to the following reasons: Patient is on heparin drip which requires daily monitoring of APTT. Past Medical History Additional Past Medical History / Comment(s): tachycardia, mitral valve History of Any Multi-Drug Resistant Organisms: None Reported Past Surgical History: Adenoidectomy, Tonsillectomy Past Anesthesia/Blood Transfusion Reactions: No Reported Reaction Past Psychological History: Bipolar Smoking Status: Never smoker Past Alcohol Use History: None Reported Past Drug Use History: None Reported Medications and Allergies Home Medications Medication Instructions Recorded Confirmed Type Nortriptyline HCl 75 mg PO HS 04/03/18 10/28/22 History QUEtiapine FUMARATE 50 mg PO HS 04/03/18 10/28/22 History Albuterol Sulfate [Albuterol 2 puff INHALATION RT-QID PRN 10/28/22 10/28/22 History Sulfate Hfa] Ergocalciferol [Vitamin D2 (1250 1,250 mcg PO TORIBIO 10/28/22 10/28/22 History Mcg = 23189 Iu)] L.acidoph,Paracasei, B.lactis 1 cap PO HS 10/28/22 10/28/22 History [Probiotic] Allergies Allergy/AdvReac Type Severity Reaction Status Date / Time No Known Allergies Allergy Verified 10/28/22 12:35 Physical Exam Vitals: Vital Signs Temp Pulse Pulse Resp BP BP Pulse Ox 10/28/22 15:00 97.6 F 91 17 152/94 96 10/28/22 13:30 89 144/98 94 L 10/28/22 12:40 86 124/85 95 10/28/22 12:30 88 124/85 95 10/28/22 12:23 99.0 F 85 16 124/85 94 L 10/28/22 11:10 88 94 L 10/28/22 11:01 94 91 L 10/28/22 10:30 93 93 L 10/28/22 10:20 94 91 L 10/28/22 10:10 87 L 10/28/22 10:00 93 91 L 10/28/22 09:52 91 L 10/28/22 09:30 90 92 L 10/28/22 09:20 90 93 L 10/28/22 09:10 92 L 10/28/22 09:00 93 L 10/28/22 08:57 98.2 F 98 20 145/94 93 L Intake and Output 10/28/22 10/28/22 10/28/22 06:59 14:59 22:59 Other: Weight 133.81 kg Results CBC & Chem 7: 10/28/22 09:18 10/28/22 09:18 Labs: Abnormal Lab Results - Last 24 Hours (Table) 10/28/22 10/28/22 Range/Units 09:18 09:18 APTT 21.9 L (22.0-30.0) sec D-Dimer 2.76 H (<0.60) mg/L FEU Carbon Dioxide 20 L (22-30) mmol/L Glucose 212 H (74-99) mg/dL ALT 35 H (4-34) U/L Thrombosis Risk Factor Assmnt - Choose All That Apply Each Factor Represents 1 point: Age 41-60 years Thrombosis Risk Factor Assessment Total Risk Factor Score: 1 Thrombosis Risk Factor Assessment Level: Low Risk
--- NOTE | 2022-10-28 20:06 | CA ---
Transthoracic Echo Report Name: Estefany Parra Age: 46 Gender: F : 1975 Exam Date: 10/28/2022 16:26 Exam Location: [facility] Ht (in): 71 Wt (lb): 295 Ordering Physician: Kyleigh Castillo Attending/Referring Phys: Swatch Folder Tessa Valentin RDCS Procedure CPT: Indications: pulmonary emboli Cardiac Hx: Technical Quality: Technically difficult study Contrast 1: Total Dose (mL): Contrast 2: Total Dose (mL): MEASUREMENTS (Male / Female) Normal Values 2D ECHO LV Diastolic Diameter PLAX 4.8 cm 4.2 - 5.9 / 3.9 - 5.3 cm LV Systolic Diameter PLAX 3.5 cm IVS Diastolic Thickness 1.3 cm 0.6 - 1.0 / 0.6 - 0.9 cm LVPW Diastolic Thickness 1.3 cm 0.6 - 1.0 / 0.6 - 0.9 cm LV Relative Wall Thickness 0.5 RV Internal Dim ED PLAX 3.9 cm LA Systolic Diameter LX 3.7 cm 3.0 - 4.0 / 2.7 - 3.8 cm LV Diastolic Volume MOD BP 45.1 cm??? 67 - 155 / 56 - 104 cm??? LV Systolic Volume MOD BP 14.4 cm??? - 58 / 19 - 49 cm??? LV Ejection Fraction MOD BP 68.1 % >= 55 % LV Cardiac Index MOD BP 973.8 cm???/min???m??? LV Diastolic Volume MOD 4C 57.3 cm??? LV Systolic Volume MOD 4C 11.6 cm??? LV Ejection Fraction MOD 4C 79.7 % LV Cardiac Index MOD 4C 1449.9 cm???/min???m??? LV Diastolic Length 4C 8.0 cm LV Systolic Length 4C 5.2 cm LV Diastolic Volume MOD 2C 27.7 cm??? LV Systolic Volume MOD 2C 14.3 cm??? LV Ejection Fraction MOD 2C 48.4 % LV Cardiac Index MOD 2C 425.8 cm???/min???m??? LV Diastolic Length 2C 5.8 cm LV Systolic Length 2C 6.7 cm LA Volume 45.4 cm??? 18 - 58 / 22 - 52 cm??? M-MODE Aortic Root Diameter MM 4.0 cm MV E Point Septal Separation 0.3 cm AV Cusp Separation MM 2.5 cm DOPPLER AV Peak Velocity 122.4 cm/s AV Peak Gradient 6.0 mmHg MV Area PHT 2.5 cm??? Mitral E Point Velocity 67.3 cm/s Mitral A Point Velocity 79.1 cm/s Mitral E to A Ratio 0.9 MV Deceleration Time 305.5 ms MV E' Velocity 7.8 cm/s Mitral E to MV E' Ratio 8.6 FINDINGS Left Ventricle Left ventricular ejection fraction is estimated at 60-65 %. Left ventricular cavity size normal. Mild concentrically increased LV wall thickness. No obvious regional wall motion abnormalities. No evidence of LV thrombus on contrast images. Right Ventricle Moderate right ventricular dilatation with preserved ventricular global systolic function. Right Atrium Right atrium not well visualized. Left Atrium Normal left atrial size. Mitral Valve Mitral valve not well visualized. No mitral stenosis, regurgitation or prolapse. Aortic Valve Trileaflet aortic valve. No aortic valve stenosis or regurgitation. Tricuspid Valve Structurally normal tricuspid valve. No tricuspid stenosis, regurgitation or prolapse. Pulmonic Valve Pulmonic valve not well visualized. No pulmonic regurgitation. Pericardium Normal pericardium. No pericardial effusion. Aorta Aortic dilatation. CONCLUSIONS Technically difficult study. Left ventricular cavity size normal. LVEF Estimated at 60-65 %. Mild concentric LV hypertrophy No obvious regional wall motion abnormalities. No significant valvular dysfunction Right ventricle appears dilated with preserved systolic function No prior echo to compare in [employer] database Previewed by: Dr Jeronimo Loredo (Electronically Signed) Final Date: 28 October 2022 20:05
[2022-10-28] MEDS ORDERED: NORTRIPTYLINE 25 MG CAP PO SCH (21:00)
[2022-10-28] MEDS ORDERED: QUEtiapine 50 MG TAB PO SCH (21:00)
[2022-10-28 23:00] VITALS: TEMP 97.8
[2022-10-29] MEDS: HEPARIN SOD,PORK IN 0.45% NACL 25,000 UNIT in 0.45% NACL 1 250ML.BAG IV SCH (00:11)
[2022-10-29 08:28] VITALS: BP 118/77; RESP 18
[2022-10-29 08:42] VITALS: PULSE 100
[2022-10-29] MEDS ORDERED: PANTOPRAZOLE 40 MG/10 ML VIAL IV SCH (09:00)
[2022-10-29] MEDS ORDERED: Apixaban Initiation Dose--VTE 5 MG TAB PO SCH (09:00)
[2022-10-29] MEDS ORDERED: PANTOPRAZOLE 40 MG TABLET PO SCH (09:00)
--- NOTE | 2022-10-29 10:51 | P.DS ---
Providers Date of admission: 10/28/22 11:51 Expected date of discharge: 10/29/22 Attending physician: Bill Groves MD Consults: 10/28/22 11:43 Consult Physician Stat Consulting Provider: Moe Uribe Consult Reason/Comments: Pulmonary emboli Do you want consulting provider notified?: Yes Consult Physician Stat Consulting Provider: Elliot Beal Consult Reason/Comments: Pulmonary emboli Do you want consulting provider notified?: Yes Primary care physician: Naila Carvajal MD Hospital Course: 46-year-old female with PMH of MVP, bipolar disorder presents the ED for shortness of breath. Patient reports shortness of breath especially with exertion started yesterday. She also reports lightheadedness. She checked her pulse ox which revealed an O2 saturation of 80% on room air. Of note, patient reports traveling from [place] to [place] on September 20. She does not smoke cigarettes. She also reports left lower extremity pain which she related to sciatica. In the ED, her vital signs were stable. CBC was unremarkable. APTT was 21.9. D-dimer was 2.76. CMP showed bicarb of 20, glucose of 212, ALT of 35. Troponin was less than 0.012. Lactic acid 1.3. Influenza, RSV, COVID- [address] chest was positive for PE. Chest x-ray negative. Rib x-ray negative. Venous duplex revealed DVT in the left lower extremity. 10/29 Patient was seen and examined. No acute events overnight. Patient reports improvement in her breathing. She passed her home oxygen evaluation. Echocardiogram shows normal EF with mild concentric LVH. Her hemoglobin A1c is 8.2. Patient states that she would like to follow-up in the outpatient setting for further management of her hyperglycemia. She will be transitioned from heparin drip to Eliquis. Advised that she will need treatment for the next 3 months. She will be given a follow-up appointment with pulmonology within 1 week of discharge. Advised to follow-up with her PCP within 1-2 days of discharge. Pertinent studies as above. General: non toxic, no distress, appears at stated age Derm: warm, dry Head: atraumatic, normocephalic, symmetric Eyes: EOMI, no lid lag, anicteric sclera Cardiovascular: S1S2 reg, no murmur Lungs: CTA bilateral, no rhonchi, no rales , no accessory muscle use Ext: no gross muscle atrophy, no edema, no contractures Neuro: no focal neuro deficits Psych: Alert, oriented, appropriate affect Discharge diagnosis: Acute hypoxic respiratory failure secondary to PE Provoked DVT Newly diagnosed diabetes mellitus Bipolar disorder This complex discharge took 35 minutes to complete. Patient Condition at Discharge: Stable Plan - Discharge Summary Discharge Rx Participant: No New Discharge Prescriptions: New Apixaban [Eliquis Starter Pack (for VTE)] 5 - 10 mg PO DIRECTED 30 Days #1 each Continue QUEtiapine FUMARATE 50 mg PO HS Nortriptyline HCl 75 mg PO HS Albuterol Sulfate [Albuterol Sulfate Hfa] 2 puff INHALATION RT-QID PRN PRN Reason: Shortness Of Breath Ergocalciferol [Vitamin D2 (1250 Mcg = 85042 Iu)] 1,250 mcg PO TORIBIO L.acidoph,Paracasei, B.lactis [Probiotic] 1 cap PO HS Discharge Medication List Nortriptyline HCl 75 mg PO HS 04/03/18 [History] QUEtiapine FUMARATE 50 mg PO HS 04/03/18 [History] Albuterol Sulfate [Albuterol Sulfate Hfa] 2 puff INHALATION RT-QID PRN 10/28/22 [History] Ergocalciferol [Vitamin D2 (1250 Mcg = 45858 Iu)] 1,250 mcg PO TORIBIO 10/28/22 [History] L.acidoph,Paracasei, B.lactis [Probiotic] 1 cap PO HS 10/28/22 [History] Apixaban [Eliquis Starter Pack (for VTE)] 5 - 10 mg PO DIRECTED 30 Days #1 each 10/29/22 [Rx] Follow up Appointment(s)/Referral(s): Margaret Hilario MD [STAFF PHYSICIAN] - 1 Week (call to schedule, tell them you were discharged from [facility] 10/29 for PE/DVT) SofiaPhysician [REFERRING] - 1-2 days (call to schedule, tell them you were discharged from [facility] 10/29 for PE/DVT) Patient Instructions/Handouts: Pulmonary Embolism (DC), Deep Vein Thrombosis (DC) Activity/Diet/Wound Care/Special Instructions: Diet: Regular Follow up with your PCP within 1-2 days of discharge. Take all medications as advised. Discharge Disposition: HOME SELF-CARE
--- NOTE | 2022-10-29 11:38 | P.CNPUL ---
History of Present Illness Consult date: 10/29/22 Requesting physician: Bill Groves Reason for consult: dyspnea, pulmonary embolism, DVT, abnormal CXR/CT Chief complaint: Shortness of breath, left lower extremity discomfort History of present illness: This is a very pleasant 46-year-old female patient with a known history of bipolar disorder and chronic back pain who presented to the emergency room yesterday with complaints of increasing shortness of breath and hypoxemia noted on her home pulse oximeter. She is also having some chest heaviness. Chest x- ray showed no acute pulmonary process. Rib x-ray revealed no evidence of fractu re. CT angiogram was positive for moderate pulmonary embolism noted within the main pulmonary arteries bilaterally right greater than left. There is also filling defects in the subsegmental branches bilaterally. No evidence of heart strain noted. Venous Doppler was positive for DVT in the left lower extremity. Echocardiogram revealed a dilated right ventricle with preserved systolic function. No surgical intervention her vascular services. She was initiated on a heparin drip. WBC 6.9. Hemoglobin 14.5. Platelets 172. D-dimer 2.76. Sodium 137. Potassium 3.7. Bicarb 20. BUN 7. Creatinine 0.64. Glucose 212. Troponin negative 1 Approximately 3 weeks ago the patient drove from [facility] back to [place] which was about a [address] She did have some breaks but most likely the provoking factor. A few days after that she developed left lower extremity pain that she thought was her sciatica. She is seen today in consultation on the regular medical floor. She is currently sitting up in bed. Awake and alert in no acute distress. She denies any shortness of breath, cough or congestion. Denies any hemoptysis. Denies any chest heaviness. She is maintaining good O2 saturations in the 90s on room air. Review of Systems REVIEW OF SYSTEMS: CONSTITUTIONAL: Denies any recent significant weight loss or weight gain. EYES: Denies change in vision. EARS, NOSE, MOUTH, THROAT: Denies headaches, denies sore throat. CARDIOVASCULAR: Positive for midsternal chest pain, no palpitations or syncopal episodes. RESPIRATORY: Positive for shortness of breath, no cough, congestion or hemoptysis. GASTROINTESTINAL: Denies change in appetite, denies abdominal pain GENITOURINARY: Denies hematuria, denies infections. MUSKULOSKELETAL: Positive for left lower extremity pain. INTEGUMENTARY: Denies rash, denies eczema. NEUROLOGICAL: Denies recent memory loss, no recent seizure activity. PSYCHIATRIC: Denies anxiety, denies depression. HEMATOLOGIC/LYMPHATIC: Denies anemia, denies enlarged lymph nodes. Past Medical History Additional Past Medical History / Comment(s): tachycardia, mitral valve History of Any Multi-Drug Resistant Organisms: None Reported Past Surgical History: Adenoidectomy, Tonsillectomy Past Anesthesia/Blood Transfusion Reactions: No Reported Reaction Past Psychological History: Bipolar Smoking Status: Never smoker Past Alcohol Use History: None Reported Past Drug Use History: None Reported Medications and Allergies Home Medications Medication Instructions Recorded Confirmed Type Nortriptyline HCl 75 mg PO HS 04/03/18 10/28/22 History QUEtiapine FUMARATE 50 mg PO HS 04/03/18 10/28/22 History Albuterol Sulfate [Albuterol 2 puff INHALATION RT-QID PRN 10/28/22 10/28/22 History Sulfate Hfa] Ergocalciferol [Vitamin D2 (1250 1,250 mcg PO TORIBIO 10/28/22 10/28/22 History Mcg = 14096 Iu)] L.acidoph,Paracasei, B.lactis 1 cap PO HS 10/28/22 10/28/22 History [Probiotic] Apixaban [Eliquis Starter Pack 5 - 10 mg PO DIRECTED 30 Days 10/29/22 Rx (for VTE)] #1 each Allergies Allergy/AdvReac Type Severity Reaction Status Date / Time No Known Allergies Allergy Verified 10/28/22 12:35 Physical Exam Vitals: Vital Signs Temp Pulse Pulse Pulse Pulse Resp BP 10/29/22 08:42 100 115 H 10/29/22 08:00 97.8 F 99 18 10/29/22 03:41 83 16 10/29/22 00:00 93 18 10/28/22 20:00 97.8 F 95 18 10/28/22 15:00 97.6 F 91 17 10/28/22 13:30 89 144/98 10/28/22 12:40 86 124/85 10/28/22 12:30 88 124/85 10/28/22 12:23 99.0 F 85 16 124/85 BP Pulse Ox Pulse Ox Pulse Ox 10/29/22 08:42 92 L 91 L 10/29/22 08:00 118/77 92 L 10/29/22 03:41 148/90 95 10/29/22 00:00 148/90 96 10/28/22 20:00 154/93 95 10/28/22 15:00 152/94 96 10/28/22 13:30 94 L 10/28/22 12:40 95 10/28/22 12:30 95 10/28/22 12:23 94 L Intake and Output 10/28/22 10/29/22 10/29/22 22:59 06:59 14:59 Intake Total 150.26 67.397 311.331 Balance 150.26 67.397 311.331 Intake: Intake, IV Titration 150.26 67.397 193.331 Amount Heparin Sod,Pork in 0.45% 150.26 67.397 193.331 NaCl 25,000 unit In 0.45 % NaCl 1 250ml.bag @ 17. 188 UNITS/KG/HR 22.999 mls/hr IV .[id number] [facility] Rx #:[id number] Oral 118 Other: # Voids 1 1 GENERAL EXAM: Alert, very pleasant 46-year-old female, on room air, comfortable in no apparent distress. HEAD: Normocephalic. EYES: Normal reaction of pupils, equal size. NOSE: Clear with pink turbinates. THROAT: No erythema or exudates. NECK: No masses, no JVD. CHEST: No chest wall deformity. LUNGS: Equal air entry with no crackles, wheeze, rhonchi or dullness. CVS: S1 and S2 normal with no audible murmur, regular rhythm. ABDOMEN: No hepatosplenomegaly, normal bowel sounds, no guarding or rigidity. SPINE: No scoliosis or deformity SKIN: No rashes CENTRAL NERVOUS SYSTEM: No focal deficits, tone is normal in all 4 extremities. EXTREMITIES: There is no peripheral edema. No clubbing, no cyanosis. P eripheral pulses are intact. Results - Laboratory Findings CBC and BMP: 10/28/22 09:18 10/28/22 09:18 PT/INR, D-dimer PT 10.9 sec (9.0-12.0) 10/28/22 09:18 INR 1.0 (<1.2) 10/28/22 09:18 D-Dimer 2.76 mg/L FEU (<0.60) H 10/28/22 09:18 Abnormal lab findings: Abnormal Labs 10/28/22 10/28/22 10/28/22 09:18 09:18 17:47 APTT 21.9 L 106.9 H* D-Dimer 2.76 H Carbon Dioxide 20 L Glucose 212 H Hemoglobin A1c ALT 35 H 10/29/22 10/29/22 03:58 03:58 APTT 47.3 H D-Dimer Carbon Dioxide Glucose Hemoglobin A1c 8.2 H ALT - Diagnostic Findings Chest x-ray: image reviewed CT scan - chest: image reviewed Assessment and Plan Assessment: Dyspnea secondary to acute pulmonary emboli suspect secondary to 10 hour car ride and left lower extremity DVT Left lower extremity DVT Family history of pulmonary embolism in her mother Obesity History of depression Plan: The patient was seen and evaluated CAT scan, chest x-ray, Dopplers, echocardiogram, labs and medications reviewed Currently on a heparin drip, being transitioned to Eliquis Stable and on room air Cleared for discharge from the pulmonary standpoint Recommend anticoagulation for 3-6 months Recommend genetic testing for blood dyscrasias Follow-up in our office in 1 week I have personally seen and examined the patient, performed the documentation and the assessment and plan as written. Number of minutes spent on the visit: 20.
== END 2022-10-29 10:48 | disposition home or self-care (01) ==
LOC: EC 08:55 → INTOOBSV 11:51 → 3SCARD 11:51 → UNDODISIN 10-29 10:48
PROVIDERS: ADMIT Student in an Organized Health Care Education/Training Program; ATTEND Student in an Organized Health Care Education/Training Program
DX: J96.01 Acute respiratory failure with hypoxia (principal); I26.99 Other pulmonary embolism without acute cor pulmonale; E87.20 Acidosis, unspecified; R73.9 Hyperglycemia, unspecified; I82.412 Acute embolism and thrombosis of left femoral vein; F31.9 Bipolar disorder, unspecified; G89.29 Other chronic pain; M54.9 Dorsalgia, unspecified; E66.9 Obesity, unspecified; Z79.899 Other long term (current) drug therapy; Z20.822 Contact with and (suspected) exposure to COVID-19; Z83.2 Family history of diseases of the blood and blood-forming organs and certain disorders involving the immune mechanism
CPT/HCPCS: 96374; 99285; 36415; 93005; 93306; 85379; 80053; 83605; 83735; 84484; 85025; 85610; 85730 ×2; 83036; 87636; 71110; 71046; 93970; 71275; G0378 ×2; J1644 ×3; Q9950; Q9967; 96365; 96366

== ENCOUNTER 2023-01-15 18:42 | Emergency (ER) | payer BC ==
[2023-01-15 19:10] VITALS: BP 153/98; PULSE 104; RESP 20; TEMP 99.4
--- NOTE | 2023-01-15 19:42 | ED ---
General Adult HPI - General Chief complaint: Chest Pain Stated complaint: Chest Pain Time Seen by Provider: 01/15/23 19:14 Source: patient Mode of arrival: ambulatory Limitations: no limitations - History of Present Illness Initial comments: Dictation was produced using [employer] dictation software. please excuse any grammatical, word or spelling errors. Chief Complaint: 47-year-old female presents to the ER for chest pain History of Present Illness: Patient is a 47-year-old female presents to the emergency department for chest pain. Patient states she has sharp chest pain located to substernal right anterior chest. Nonradiating. She states it is sharp and intermittent worse with certain movements and leaning forward. Denies any pain she lies flat. No recent colds. No shortness of breath. She is currently on eliquis for pulmonary embolism diagnosed approximately 3 months ago. She has no associated shortness of breath. The ROS documented in this emergency department record has been reviewed and confirmed by me. Those systems with pertinent positive or negative responses have been documented in the HPI. All other systems are other negative and/or noncontributory. - Related Data Home Medications Medication Instructions Recorded Confirmed Nortriptyline HCl 75 mg PO HS 04/03/18 10/28/22 QUEtiapine FUMARATE 50 mg PO HS 04/03/18 10/28/22 Albuterol Sulfate [Albuterol 2 puff INHALATION RT-QID PRN 10/28/22 10/28/22 Sulfate Hfa] Ergocalciferol [Vitamin D2 (1250 1,250 mcg PO TORIBIO 10/28/22 10/28/22 Mcg = 60943 Iu)] L.acidoph,Paracasei, B.lactis 1 cap PO HS 10/28/22 10/28/22 [Probiotic] Previous Rx's Medication Instructions Recorded Apixaban [Eliquis Starter Pack 5 - 10 mg PO DIRECTED 30 Days 10/29/22 (for VTE)] #1 each Allergies Allergy/AdvReac Type Severity Reaction Status Date / Time No Known Allergies Allergy Verified 10/28/22 12:35 Review of Systems ROS Statement: Those systems with pertinent positive or pertinent negative responses have been documented in the HPI. ROS Other: All systems not noted in ROS Statement are negative. Past Medical History Past Medical History: Diabetes Mellitus, Pulmonary Embolus (PE) Additional Past Medical History / Comment(s): tachycardia, mitral valve History of Any Multi-Drug Resistant Organisms: None Reported Past Surgical History: Adenoidectomy, Tonsillectomy Past Anesthesia/Blood Transfusion Reactions: No Reported Reaction Past Psychological History: Bipolar Smoking Status: Never smoker Past Alcohol Use History: None Reported Past Drug Use History: None Reported General Exam - General Exam Comments Initial Comments: PHYSICAL EXAM: General Impression: Alert and oriented x3, not in acute distress HEENT: Normocephalic atraumatic, extra-ocular movements intact, pupils equal and reactive to light bilaterally, mucous membranes moist. Cardiovascular: Heart regular rate and rhythm Chest: Able to complete full sentences, no retractions, no tachypnea him about palpatory tenderness to the lower anterior chest, pain is reproduced with truncal movement Abdomen: abdomen soft, non-tender, non-distended, no organomegaly Musculoskeletal: Pulses present and equal in all extremities, no peripheral edema Motor: no focal deficits noted Neurological: CN II-XII grossly intact, no focal motor or sensory deficits noted Skin: Intact with no visualized rashes Psych: Normal affect and mood Limitations: no limitations Course Vital Signs 01/15/23 18:56 Temperature 99.4 F Pulse Rate 104 H Respiratory 20 Rate Blood Pressure 153/98 O2 Sat by Pulse 98 Oximetry EKG Findings - EKG Comments: EKG Findings:: My EKG interpretation: Ventricular rate 94, sinus rhythm,. Interval 95, QRS 80, QTC 426. No DC prolongation, no QTC prolongation, no ST or T-wave changes noted. Overall, this EKG is unremarkable Medical Decision Making - Medical Decision Making Was pt. sent in by a medical professional or institution (, PA, LOADER OPERATOR SUPERVISOR, urgent care, hospital, or group home...) When possible be specific @ -No Did you speak to anyone other than the patient for history (EMS, parent, family, police, friend...)? What history was obtained from this source @ -No Did you review nursing and triage notes (agree or disagree)? Why? @ -I reviewed and agree with nursing and triage notes Were old charts reviewed (outside hosp., previous admission, EMS record, old EKG, old radiological studies, urgent care reports/EKG's, group home records)? Report findings @ -No old charts were reviewed Differential Diagnosis (chest pain, altered mental status, abdominal pain women, abdominal pain men, vaginal bleeding, musculoskeletal, weakness, fever, dyspnea, syncope, headache, dizziness, GI bleed, back pain, seizure, CVA, palpatations, mental health)? @ -Differential Chest Pain: Stable Angina, Unstable Angina, STEMI, NSTEMI Aortic Dissection, Pneumothorax, Musculoskeletal, Esophageal Spasm GERD, Cholecystitis, Pancreatitis, Zoster, this is not meant to be an all-inclusive list. EKG interpreted by me (3pts min.). @ -EKG is unremarkable X-rays interpreted by me (1pt min.). @ -Chest x-ray shows no acute processes. Mild blunting of the last cos tophrenic angle CT interpreted by me (1pt min.). @ -None done U/S interpreted by me (1pt. min.). @ -None done What testing was considered but not performed or refused? (CT, X-rays, U/S, labs)? Why? @ -None What meds were considered but not given or refused? Why? @ -None Did you discuss the management of the patient with other professionals (professionals i.e. , PA, LOADER OPERATOR SUPERVISOR, lab, RT, psych nurse, social media senior associate, shredded filler cutter operator, teacher, banking services officer, case packer)? Give summary @ -No Was smoking cessation discussed for >3mins.? @ -No Was critical care preformed (if so, how long)? @ -No Were there social determinants of health that impacted care today? How? (Homelessness, low income, unemployed, alcoholism, drug addiction, transportation, low edu. Level, literacy, decrease access to med. care, skilled nursing, rehab)? @ -No Was there de-escalation of care discussed even if they declined (Discuss DNR or withdrawal of care, Hospice)? DNR status @ -No What co-morbidities impacted this encounter? (DM, HTN, Smoking, COPD, CAD, Cancer, CVA, ARF, Chemo, Hep., AIDS, mental health diagnosis, sleep apnea, morbid obesity)? @ -None Was patient admitted / discharged? Hospital course, mention meds given and route, prescriptions, significant lab abnormalities, going to OR and other pertinent info. @ -47-year-old female with history of pulmonary embolism presents to the ER for atypical chest pain. Vital signs shows mild tachycardia. Patient is reproducible at bedside. Chest x-ray shows mild blunting at the left costophrenic angle. Bedside examination and history presents doesnotsuggestanypneumoniaorleft-sidedthoracic disease. laboratory evaluation obtained. Troponin is normal. Patient reevaluated at bedside AND answered. Patient discharged. Undiagnosed new problem with uncertain prognosis? @ -No Drug Therapy requiring intensive monitoring for toxicity (Heparin, Nitro, Insulin, Cardizem)? @ -No Were any procedures done? @ -No Diagnosis/symptom? Acute, or Chronic, or Acute on Chronic? Uncomplicated (without systemic symptoms) or Complicated (systemic symptoms)? @ -Atypical chest pain Side effects of treatment? @ -No Exacerbation, Progression, or Severe Exacerbation? @ -No Poses a threat to life or bodily function? How? (Chest pain, [place], [place], pneumonia, PE, COPD, DKA, ARF, appy, cholecystitis, CVA, Diverticulitis, Homicidal, Suicidal, threat to staff... and all critical care pts) @ -No - Lab Data Result diagrams: 01/15/23 19:53 01/15/23 19:53 Lab Results 01/15/23 01/15/23 01/15/23 Range/Units 19:53 19:53 19:53 WBC 8.2 (3.8-10.6) k/uL RBC 4.77 (3.80-5.40) m/uL Hgb 14.6 (11.4-16.0) gm/dL Hct 43.5 (34.0-46.0) % MCV 91.3 (80.0-100.0) fL MCH 30.6 (25.0-35.0) pg MCHC 33.5 (31.0-37.0) g/dL RDW 13.5 (11.5-15.5) % Plt Count 225 (150-450) k/uL MPV 8.7 Neutrophils % 60 % Lymphocytes % 31 % Monocytes % 5 % Eosinophils % 2 % Basophils % 0 % Neutrophils # 5.0 (1.3-7.7) k/uL Lymphocytes # 2.6 (1.0-4.8) k/uL Monocytes # 0.4 (0-1.0) k/uL Eosinophils # 0.1 (0-0.7) k/uL Basophils # 0.0 (0-0.2) k/uL Sodium 139 (137-145) mmol/L Potassium 3.9 (3.5-5.1) mmol/L Chloride 108 H (98-107) mmol/L Carbon Dioxide 20 L (22-30) mmol/L Anion Gap 11 mmol/L BUN 13 (7-17) mg/dL Creatinine 0.71 (0.52-1.04) mg/dL Est GFR (CKD-EPI)AfAm >90 (>60 ml/min/1.73 sqM) Est GFR (CKD-EPI)NonAf >90 (>60 ml/min/1.73 sqM) Glucose 203 H (74-99) mg/dL Calcium 9.4 (8.4-10.2) mg/dL Troponin I <0.012 (0.000-0.034) ng/mL Disposition Clinical Impression: Costochondritis Disposition: HOME SELF-CARE Condition: Good Instructions (If sedation given, give patient instructions): Costochondritis (ED) Is patient prescribed a controlled substance at d/c from ED?: No Referrals: Jareth Goodwin MD [Primary Care Provider] - 1-2 days Time of Disposition: 21:02
--- NOTE | 2023-01-15 20:08 | XR ---
EXAMINATION TYPE: XR chest 2V DATE OF EXAM: 01/15/2023 COMPARISON: Chest x-ray and CT October 28, 2022 HISTORY: Chest pain. TECHNIQUE: Frontal and lateral views of the chest are obtained. FINDINGS: There is new patchy left basilar opacity. Right lung remains clear. Mild cardiomegaly rede monstrated. The osseous structures are intact. IMPRESSION: Mild cardiomegaly with new patchy left basilar atelectasis and/or developing acute infil trate.
[2023-01-15 20:25] LABS: Basophils % (A) 0 %; Eosinophils # (A) 0.1 k/uL (0-0.7); Eosinophils % (A) 2 %; HCT 43.5 % (34.0-46.0); HGB 14.6 gm/dL (11.4-16.0); Lymphocytes # (A) 2.6 k/uL (1.0-4.8); Lymphocytes % (A) 31 %; MCH 30.6 pg (25.0-35.0); MCHC 33.5 g/dL (31.0-37.0); MCV 91.3 fL (80.0-100.0); Mean Platelet Volume 8.7; Monocytes # (A) 0.4 k/uL (0-1.0); Monocytes % (A) 5 %; Neutrophils % (A) 60 %; Platelet Count 225 k/uL (150-450); RBC 4.77 m/uL (3.80-5.40); RDW 13.5 % (11.5-15.5); WBC 8.2 k/uL (3.8-10.6)
[2023-01-15 20:45] LABS: African American GFR (CKD) >90 (>60 ml/min/1.73 sqM); Anion Gap 11 mmol/L; Blood Urea Nitrogen 13 mg/dL (7-17); Calcium 9.4 mg/dL (8.4-10.2); Carbon Dioxide 20 mmol/L (22-30); Chloride 108 mmol/L (98-107); Glucose 203 mg/dL (74-99); Non-African American GFR(CKD) >90 (>60 ml/min/1.73 sqM); Potassium 3.9 mmol/L (3.5-5.1); Sodium 139 mmol/L (137-145)
== END 2023-01-15 21:21 | disposition home or self-care (01) ==
LOC: SUPCPDRO 18:42 → EC 18:42
DX: M94.0 Chondrocostal junction syndrome [Tietze] (principal); E11.9 Type 2 diabetes mellitus without complications; F31.9 Bipolar disorder, unspecified; Z79.899 Other long term (current) drug therapy
CPT/HCPCS: 36415; 71046; 80048; 84484; 85025; 93005; 99285

== ENCOUNTER → 2023-02-20 | Outpatient (CLI) | payer BC ==
[2023-02-21 03:23] LABS: ALT 30 U/L (8-44); AST 18 U/L (13-35); Albumin 4.5 g/dL (3.8-4.9); Albumin/Globulin Ratio 1.73 Ratio (1.60-3.17); Alkaline Phosphatase 62 U/L (41-126); BUN/Creat Ratio 13.29 Ratio (12.00-20.00); Blood Urea Nitrogen 9.3 mg/dL (9.0-27.0); Calcium 10.2 mg/dL (8.7-10.3); Carbon Dioxide 21.6 mmol/L (21.6-31.8); Chloride 103 mmol/L (96-109); Chol/HDL Ratio 5.07 Ratio; Globulin 2.6 g/dL (1.6-3.3); Glucose 146 mg/dL (70-110); LDL Cholesterol,Calculated 162.7 mg/dL (0.0-131.0); Potassium 4.1 mmol/L (3.5-5.5); Sodium 139 mmol/L (135-145); Total Bilirubin 0.4 mg/dL (0.3-1.2); Total Protein 7.1 g/dL (6.2-8.2)
[2023-02-21 03:30] LABS: HCT 47.7 % (37.2-46.3); HGB 15.4 g/dL (12.0-15.0); MCH 29.6 pg (27.0-32.0); MCHC 32.3 g/dL (32.0-37.0); MCV 91.6 FL (80.0-97.0); NRBC Per 100 WBC 0 X 10*3/uL (0.00-0.01); Platelet Count 269 X 10*3/uL (140-440); RBC 5.21 X 10*6/uL (4.10-5.20); RDW 13.5 % (11.5-14.5); WBC 8.61 X 10*3/uL (4.50-10.00)
== END | disposition home or self-care (01) ==
LOC: LABWHC1 11:52
PROVIDERS: ATTEND Family Medicine
DX: E11.65 Type 2 diabetes mellitus with hyperglycemia (principal); R53.83 Other fatigue
CPT/HCPCS: 36415; 80053; 80061; 83036; 84443; 85027

== ENCOUNTER → 2023-03-22 | Outpatient (CLI) | payer BC ==
[2023-03-22 13:26] LABS: African American GFR (CKD) >90 (>60 ml/min/1.73 sqM); Blood Urea Nitrogen 12 mg/dL (7-17); Non-African American GFR(CKD) >90 (>60 ml/min/1.73 sqM)
--- NOTE | 2023-03-22 14:21 | CT ---
"EXAMINATION TYPE: CT angio chest DATE OF EXAM: 03/22/2023 2:07 PM COMPARISON: HISTORY: f/u PE CT DLP: 579 mGycm Automated exposure control for dose reduction was used. CONTRAST: CTA scan of the thorax is performed with IV Contrast, patient injected with 100ml mL of Isovue 370, p ulmonary embolism protocol. . FINDINGS: LUNGS: Subsegmental and groundglass changes involving the lungs favor atelectasis. There is no pleura l effusion or pneumothorax seen. The tracheobronchial tree is patent. MEDIASTINUM: There is a filling defect within the secondary branch of the right pulmonary artery refe rence axial image 58 series 5 compatible with acute pulmonary embolus this is improved relative to pr ior exam. No diagnostic evidence of right ventricular strain. There are no greater than 1 cm hilar or mediastinal lymph nodes. Aorta normal caliber with mild ath erosclerotic changes. Heart is mildly enlarged and there is pericardial\\mediastinal lipomatosis and a trace of pericardial fluid. No pathologic lymphadenopathy. OTHER: Simple cyst left kidney. Hypertrophic and degenerative changes spine. Appears be a diverticulum exten ding off the posterior gastric fundus. Atrophy of the pancreas. Metallic artifact in the soft tissues of the neck. IMPRESSION: 1. There is significant interval improvement in the large right-sided pulmonary embolism. There is a focal area of pulmonary embolus within the secondary branch of the right pulmonary artery. A [place] level critical message alert has been initiated for Moe Uribe DO via the [employer] 36 0 | Critical Results System on 03/22/2023 2:16 PM. This message alert has been sent to Moe Uribe DO via the preferences provided by the clinician for the receipt of Radiology Critical Findings. Nv ssage ID [id number]."
== END | disposition home or self-care (01) ==
LOC: RADCTMAIN 12:16
PROVIDERS: ATTEND Internal Medicine Critical Care Medicine
DX: I26.99 Other pulmonary embolism without acute cor pulmonale (principal)
CPT/HCPCS: 82565; 84520; 71275; 36415; Q9967

== ENCOUNTER → 2023-05-24 | Outpatient (CLI) | payer BC ==
[2023-05-24 15:34] LABS: HGB 14.8 g/dL (12.0-17.0); MCH 30.5 pg (27.0-32.0); MCHC 32.9 g/dL (32.0-37.0); MCV 92.8 FL (80.0-97.0); NRBC Per 100 WBC 0 X 10*3/uL (0.00-0.01); Platelet Count 232 X 10*3/uL (140-440); RBC 4.85 X 10*6/uL (4.10-5.60); WBC 7.75 X 10*3/uL (4.50-10.00)
[2023-05-24 16:58] LABS: Chol/HDL Ratio 3.33 Ratio; LDL Cholesterol,Calculated 86.8 mg/dL (0.0-131.0)
[2023-05-25 09:11] LABS: ALT 42 U/L (8-49); AST 27 U/L (13-35); Albumin 4.4 g/dL (3.8-4.9); Albumin/Globulin Ratio 1.69 Ratio (1.60-3.17); Alkaline Phosphatase 72 U/L (41-126); BUN/Creat Ratio 13.22 Ratio (12.00-20.00); Blood Urea Nitrogen 11.9 mg/dL (9.0-27.0); Calcium 10.5 mg/dL (8.7-10.3); Carbon Dioxide 17.8 mmol/L (21.6-31.8); Chloride 103 mmol/L (96-109); Globulin 2.6 g/dL (1.6-3.3); Glucose 166 mg/dL (70-110); Potassium 4.4 mmol/L (3.5-5.5); Sodium 138 mmol/L (135-145); Total Bilirubin 0.4 mg/dL (0.3-1.2)
== END | disposition home or self-care (01) ==
LOC: LABWHC1 09:22
PROVIDERS: ATTEND Family Medicine
DX: E11.65 Type 2 diabetes mellitus with hyperglycemia (principal); E11.69 Type 2 diabetes mellitus with other specified complication; E78.5 Hyperlipidemia, unspecified
CPT/HCPCS: 36415; 80053; 80061; 84439; 84443; 84481; 85027

== ENCOUNTER 2024-04-06 04:44 | Observation (INO) | payer BC ==
[2024-04-06 05:20] LABS: Basophils % (A) 0 %; Eosinophils # (A) 0.1 k/uL (0-0.7); Eosinophils % (A) 1 %; HCT 41.5 % (34.0-46.0); HGB 13.9 gm/dL (11.4-16.0); Lymphocytes % (A) 21 %; MCH 29.6 pg (25.0-35.0); MCHC 33.4 g/dL (31.0-37.0); MCV 88.5 fL (80.0-100.0); Mean Platelet Volume 8.3; Monocytes # (A) 0.4 k/uL (0-1.0); Monocytes % (A) 8 %; Neutrophils # (A) 3.3 k/uL (1.3-7.7); Neutrophils % (A) 66 %; Platelet Count 206 k/uL (150-450); RBC 4.69 m/uL (3.80-5.40); RDW 13.8 % (11.5-15.5); WBC 4.9 k/uL (3.8-10.6)
[2024-04-06 05:30] LABS: INR 1.1 (<1.2); Partial Thromboplastin Time 24.3 sec (22.0-30.0)
[2024-04-06 05:33] LABS: ALT 51 U/L (4-34); AST 39 U/L (14-36); African American GFR (CKD) >90 (>60 ml/min/1.73 sqM); Albumin 4.6 g/dL (3.5-5.0); Alkaline Phosphatase 81 U/L (38-126); Anion Gap 14 mmol/L; Blood Urea Nitrogen 13 mg/dL (7-17); Calcium 9.6 mg/dL (8.4-10.2); Carbon Dioxide 17 mmol/L (22-30); Chloride 105 mmol/L (98-107); Glucose 160 mg/dL (74-99); Non-African American GFR(CKD) >90 (>60 ml/min/1.73 sqM); Potassium 4.2 mmol/L (3.5-5.1); Sodium 136 mmol/L (137-145); Total Bilirubin 0.7 mg/dL (0.2-1.3); Total Protein 7.2 g/dL (6.3-8.2)
[2024-04-06 06:06] LABS: Influenza A Not Detected (Not Detectd); Influenza B Not Detected (Not Detectd); RSV Not Detected (Not Detectd)
--- NOTE | 2024-04-06 06:06 | ED ---
SOB HPI - General Chief Complaint: Shortness of Breath Stated Complaint: SANDRA Time Seen by Provider: 04/06/24 05:42 Source: patient Mode of arrival: ambulatory Limitations: no limitations - History of Present Illness Initial Comments: This patient is a 48-year-old woman who had history of provoked DVT and associated pulmonary embolism in 2022. She states that over the course of the past 5 days or so she has had upper respiratory symptoms and now having some cough, dyspnea and chest pain. She also had a couple of episodes of near syncope. The patient does continue to take medications but was concerned she may have had recurrence of pulmonary embolism. Nursing notes reference recent DVT diagnosis but when I discussed this with the patient she states that she had gone to [facility] had duplex Doppler that showed what was suspected to be the chronic DVTs no definite new clot. Complaint: shortness of breath, cough, chest pain Onset/Timin -: days(s) Quality: aching Consistency: constant Improves With: nothing Worsens With: coughing Known History Of: DVT Context: recent URI Associated Symptoms: cough, syncope (Near Syncope) Treatments Prior to Arrival: other (Antibiotics and albuterol) - Related Data Home Oxygen Therapy: No Home Medications Medication Instructions Recorded Confirmed Acetaminophen [Tylenol Arthritis] 650 mg PO Q8H PRN 04/06/24 04/06/24 Albuterol Sulfate [Albuterol 2 puff PO RT-Q6H PRN 04/06/24 04/06/24 Sulfate Hfa] Amoxic-Pot Clav 875-125Mg 1 tab PO Q12HR 04/06/24 04/06/24 [Augmentin 875-125] Apixaban [Eliquis] 2.5 mg PO BID 04/06/24 04/06/24 Atorvastatin [Lipitor] 20 mg PO HS 04/06/24 04/06/24 Alisha Nzdmbg-Hprmzr-Ojyd Hair 1 tab PO DAILY 04/06/24 Supplement Clindamycin Phosphate [Cleocin T 1 applic TOPICAL DAILY PRN 04/06/24 04/06/24 1%] Clobetasol Propionate [Temovate 1 applic TOPICAL DIRECTED 04/06/24 04/06/24 0.05% Oint] Ergocalciferol (Vitamin D2) 1,250 mcg PO TORIBIO 04/06/24 04/06/24 [Drisdol (50,000 Iu)] L.acidoph,Paracasei, B.lactis 1 cap PO DAILY 04/06/24 04/06/24 [Probiotic] Lidocaine 5% Patch [Lidoderm] 1 patch TOPICAL DAILY PRN 04/06/24 04/06/24 Medroxyprogesterone Acetate 150 mg IM Q84D 04/06/24 04/06/24 [Depo-Provera] Nortriptyline HCl [Pamelor] 75 mg PO HS 04/06/24 04/06/24 Omeprazole [PriLOSEC] 20 mg PO DAILY 04/06/24 04/06/24 QUEtiapine [SEROquel] 50 mg PO HS 04/06/24 04/06/24 Tirzepatide [Mounjaro] 5 mg SQ Q8D 04/06/24 04/06/24 guaiFENesin [Mucinex] 600 mg PO Q12H 04/06/24 04/06/24 lisinopriL [Zestril] 10 mg PO HS 04/06/24 04/06/24 valACYclovir HCL [Valtrex] 500 mg PO HS 04/06/24 04/06/24 Allergies Allergy/AdvReac Type Severity Reaction Status Date / Time No Known Allergies Allergy Verified 04/06/24 09:34 Review of Systems ROS Statement: Those systems with pertinent positive or pertinent negative responses have been documented in the HPI. ROS Other: All systems not noted in ROS Statement are negative. Constitutional: Reports: fever. Denies: chills, weakness Respiratory: Reports: cough, dyspnea. Denies: wheezes, hemoptysis Cardiovascular: Reports: chest pain, syncope (Near syncope). Denies: palpitations, orthopnea, edema Gastrointestinal: Denies: abdominal pain, nausea, vomiting, diarrhea, melena, hematochezia Genitourinary: Denies: dysuria, hematuria Musculoskeletal: Denies: back pain Skin: Denies: rash Neurological: Denies: headache, weakness Past Medical History Past Medical History: Diabetes Mellitus, Pulmonary Embolus (PE) Additional Past Medical History / Comment(s): tachycardia, mitral valve History of Any Multi-Drug Resistant Organisms: None Reported Past Surgical History: Adenoidectomy, Tonsillectomy Past Anesthesia/Blood Transfusion Reactions: No Reported Reaction Past Psychological History: Bipolar Smoking Status: Never smoker Past Alcohol Use History: None Reported Past Drug Use History: None Reported General Exam Limitations: no limitations General appearance: alert, in no apparent distress Head exam: Present: atraumatic, normocephalic Eye exam: Present: normal appearance. Absent: scleral icterus, conjunctival injection Neck exam: Present: normal inspection, full ROM. Absent: meningismus Respiratory exam: Present: wheezes, rhonchi. Absent: respiratory distress, rales, stridor, chest wall tenderness, accessory muscle use, decreased breath sounds Cardiovascular Exam: Present: normal rhythm, tachycardia, normal heart sounds. Absent: systolic murmur, diastolic murmur, rubs, gallop GI/Abdominal exam: Present: soft. Absent: distended, tenderness, guarding, rebound, rigid, mass Extremities exam: Present: normal inspection, normal capillary refill. Absent: pedal edema, calf tenderness Back exam: Present: normal inspection. Absent: CVA tenderness (R), CVA tenderness (L) Neurological exam: Present: alert Skin exam: Present: warm, dry, intact, normal color. Absent: rash Course Vital Signs 04/06/24 04/06/24 04/06/24 04:49 05:50 06:53 Temperature 99.5 F Pulse Rate 115 H 112 H 103 H Respiratory 20 16 16 Rate Blood Pressure 113/70 101/78 111/73 O2 Sat by Pulse 97 97 97 Oximetry 04/06/24 04/06/24 04/06/24 10:17 11:12 11:20 Temperature 99.4 F Pulse Rate 106 H 107 H 110 H Respiratory 20 Rate Blood Pressure 105/73 O2 Sat by Pulse 98 Oximetry 04/06/24 04/06/24 04/06/24 15:11 15:19 15:53 Temperature 99.0 F Pulse Rate 110 H 119 H 111 H Respiratory 24 Rate Blood Pressure 120/82 O2 Sat by Pulse 95 Oximetry Medical Decision Making - Medical Decision Making The patient had chest x-ray that I interpreted as negative for acute infiltrate, pneumothorax, congestive heart failure The patient had CT angiogram of the chest that was interpreted by radiology as showing suspected pulmonary embolism. Was pt. sent in by a medical professional or institution (, PA, FAMILY PHYSICIAN, urgent care, hospital, or long term...) When possible be specific @ -[No] Did you speak to anyone other than the patient for history (EMS, parent, family, police, friend...)? What history was obtained from this source @ -[No] Did you review nursing and triage notes (agree or disagree)? Why? @ -[I reviewed and agree with nursing and triage notes] Were old charts reviewed (outside hosp., previous admission, EMS record, old EKG, old radiological studies, urgent care reports/EKG's, long term records)? Report findings @ -[No old charts were reviewed] Differential Diagnosis (chest pain, altered mental status, abdominal pain women, abdominal pain men, vaginal bleeding, weakness, fever, dyspnea, syncope, headache, dizziness, GI bleed, back pain, seizure, CVA, palpatations, mental health, musculoskeletal)? @ -Differential Dyspnea: Coronary syndrome, arrhythmia, tamponade, asthma, COPD, pulmonary embolism, pneumonia, pneumothorax, pulmonary effusion, anaphylaxis, diabetic ketoacidosis, flailed chest, pulmonary contusion, diaphragmatic rupture, anemia, neuromuscular, this is not meant to be an all-inclusive list. EKG interpreted by me (3pts min.). @ -[I interpreted as above] X-rays interpreted by me (1pt min.). @ -[I interpreted as above CT interpreted by me (1pt min.). @ -[Interpretation per radiology U/S interpreted by me (1pt. min.). @ -[None done] What testing was considered but not performed or refused? (CT, X-rays, U/S, labs)? Why? @ -[None] What meds were considered but not given or refused? Why? @ -[None] Did you discuss the management of the patient with other professionals (professionals i.e. , PA, FAMILY PHYSICIAN, lab, RT, psych nurse, social director, electrician aircraft, teacher, custodial officer, case supervisor)? Give summary @ -[Case discussed with admitting physician and treatment recommendations incorporated Was smoking cessation discussed for >3mins.? @ -[No] Was critical care preformed (if so, how long)? @ -[No] Were there social determinants of health that impacted care today? How? (Homelessness, low income, unemployed, alcoholism, drug addiction, transportation, low edu. Level, literacy, decrease access to med. care, prison, rehab)? @ -[No] Was there de-escalation of care discussed even if they declined (Discuss DNR or withdrawal of care, Hospice)? DNR status @ -[No] What co-morbidities impacted this encounter? (DM, HTN, Smoking, COPD, CAD, Cancer, CVA, ARF, Chemo, Hep., AIDS, mental health diagnosis, sleep apnea, morbid obesity)? @ -[History of previous DVT Was patient admitted / discharged? Hospital course, mention meds given and rou te, prescriptions, significant lab abnormalities, going to OR and other pertinent info. @ -[Patient is 48-year-old woman presenting with dyspnea and CT obtained here suspected of showing pulmonary embolism. Patient will be started on heparin and have consultation. Undiagnosed new problem with uncertain prognosis? @ -[No] Drug Therapy requiring intensive monitoring for toxicity (Heparin, Nitro, Insulin, Cardizem)? @ -[No] Were any procedures done? @ -[No] Diagnosis/symptom? @ -[Acute dyspnea Acute pulmonary embolism Acute, or Chronic, or Acute on Chronic? @ -[Acute Uncomplicated (without systemic symptoms) or Complicated (systemic symptoms)? @ -[Uncomplicated Side effects of treatment? @ -[No] Exacerbation, Progression, or Severe Exacerbation? @ -[No] Poses a threat to life or bodily function? How? (Chest pain, [place], [place], pneumonia, PE, COPD, DKA, ARF, appy, cholecystitis, CVA, Diverticulitis, Homicidal, Suicidal, threat to staff... and all critical care pts) @ -[No] All treatments are based on ideal body weight as in ED triage - Lab Data Result diagrams: 04/06/24 08:12 04/06/24 05:11 Lab Results 04/06/24 04/06/24 04/06/24 Range/Units 05:11 05:11 05:11 WBC 4.9 (3.8-10.6) k/uL RBC 4.69 (3.80-5.40) m/uL Hgb 13.9 (11.4-16.0) gm/dL Hct 41.5 (34.0-46.0) % MCV 88.5 (80.0-100.0) fL MCH 29.6 (25.0-35.0) pg MCHC 33.4 (31.0-37.0) g/dL RDW 13.8 (11.5-15.5) % Plt Count 206 (150-450) k/uL MPV 8.3 Neutrophils % 66 % Lymphocytes % 21 % Monocytes % 8 % Eosinophils % 1 % Basophils % 0 % Neutrophils # 3.3 (1.3-7.7) k/uL Lymphocytes # 1.0 (1.0-4.8) k/uL Monocytes # 0.4 (0-1.0) k/uL Eosinophils # 0.1 (0-0.7) k/uL Basophils # 0.0 (0-0.2) k/uL PT 12.0 (10.0-12.5) sec INR 1.1 (<1.2) APTT 24.3 (22.0-30.0) sec Sodium 136 L (137-145) mmol/L Potassium 4.2 (3.5-5.1) mmol/L Chloride 105 (98-107) mmol/L Carbon Dioxide 17 L (22-30) mmol/L Anion Gap 14 mmol/L BUN 13 (7-17) mg/dL Creatinine 0.74 (0.52-1.04) mg/dL Est GFR (CKD-EPI)AfAm >90 (>60 ml/min/1.73 sqM) Est GFR (CKD-EPI)NonAf >90 (>60 ml/min/1.73 sqM) Glucose 160 H (74-99) mg/dL Plasma Lactic Acid Charly (0.7-2.0) mmol/L Calcium 9.6 (8.4-10.2) mg/dL Total Bilirubin 0.7 (0.2-1.3) mg/dL AST 39 H (14-36) U/L ALT 51 H (4-34) U/L Alkaline Phosphatase 81 (38-126) U/L Troponin I (0.000-0.034) ng/mL Total Protein 7.2 (6.3-8.2) g/dL Albumin 4.6 (3.5-5.0) g/dL Influenza Type A (PCR) (Not Detectd) Influenza Type B (PCR) (Not Detectd) RSV (PCR) (Not Detectd) SARS-CoV-2 (PCR) (Not Detectd) 04/06/24 04/06/24 04/06/24 Range/Units 05:11 05:11 05:11 WBC (3.8-10.6) k/uL RBC (3.80-5.40) m/uL Hgb (11.4-16.0) gm/dL Hct (34.0-46.0) % MCV (80.0-100.0) fL MCH (25.0-35.0) pg MCHC (31.0-37.0) g/dL RDW (11.5-15.5) % Plt Count (150-450) k/uL MPV Neutrophils % % Lymphocytes % % Monocytes % % Eosinophils % % Basophils % % Neutrophils # (1.3-7.7) k/uL Lymphocytes # (1.0-4.8) k/uL Monocytes # (0-1.0) k/uL Eosinophils # (0-0.7) k/uL Basophils # (0-0.2) k/uL PT (10.0-12.5) sec INR (<1.2) APTT (22.0-30.0) sec Sodium (137-145) mmol/L Potassium (3.5-5.1) mmol/L Chloride (98-107) mmol/L Carbon Dioxide (22-30) mmol/L Anion Gap mmol/L BUN (7-17) mg/dL Creatinine (0.52-1.04) mg/dL Est GFR (CKD-EPI)AfAm (>60 ml/min/1.73 sqM) Est GFR (CKD-EPI)NonAf (>60 ml/min/1.73 sqM) Glucose (74-99) mg/dL Plasma Lactic Acid Charly 1.5 (0.7-2.0) mmol/L Calcium (8.4-10.2) mg/dL Total Bilirubin (0.2-1.3) mg/dL AST (14-36) U/L ALT (4-34) U/L Alkaline Phosphatase (38-126) U/L Troponin I <0.012 (0.000-0.034) ng/mL Total Protein (6.3-8.2) g/dL Albumin (3.5-5.0) g/dL Influenza Type A (PCR) Not Detected (Not Detectd) Influenza Type B (PCR) Not Detected (Not Detectd) RSV (PCR) Not Detected (Not Detectd) SARS-CoV-2 (PCR) Not Detected (Not Detectd) - EKG Data -: EKG Interpreted by Me EKG shows normal: sinus rhythm, axis (Normal), intervals (Normal), QRS complexes (Incomplete right bundle branch block pattern. Left anterior fascicular block) Rate: tachycardia (Rate 114 bpm) Disposition Clinical Impression: Pulmonary embolism Disposition: ADMITTED IP TO THIS [facility] Condition: Good Is patient prescribed a controlled substance at d/c from ED?: No
--- NOTE | 2024-04-06 07:11 | XR ---
EXAMINATION TYPE: XR chest 2V DATE OF EXAM: 04/06/2024 5:36 AM COMPARISON: Chest radiographs from 02/15/2023 CLINICAL INDICATION: Female, 48 years old with history of difficulty breathing; [facility] TECHNIQUE: XR chest 2V Frontal and lateral views of the chest. FINDINGS: Lungs/Pleura: There is no evidence of pleural effusion, focal consolidation, or pneumothorax. Pulmonary vascularity: Unremarkable. Heart/mediastinum: Cardiomediastinal silhouette is unremarkable. Musculoskeletal: No acute osseous pathology. Other findings: None IMPRESSION: No acute cardiopulmonary disease/process. [facility], , 04/06/2024 7:09 AM
--- NOTE | 2024-04-06 07:29 | CT ---
EXAMINATION TYPE: CT chest angio for PE DATE OF EXAM: 04/06/2024 7:11 AM COMPARISON: 03/22/2023 CLINICAL INDICATION: Female, 48 years old with history of syncope. history of PE; Pt to ED for evalua tion of SOB x1week, pt was recently dx with DVT in lower left leg at [facility] in early march. TECHNIQUE/CONTRAST: CTA scan of the thorax is performed with IV Contrast, patient injected with 100 mL of Isovue 370, MIP images are created and reviewed these are created on a separate workstation.. CT DLP: 625.7 mGycm, Automated exposure control for dose reduction was used. FINDINGS: Lungs/Pleura: Few scattered airspace opacities/tree-in-bud opacities area of suspected pulmonary embo li. No evidence of, pleural effusion or pneumothorax. Airway: Large airways are patent. Heart: Heart is within normal limits for size. Vasculature: Limited exam due to bolus timing and motion. Few few scattered filling defects are seen within the arterial vasculature series 14 image 81 on the right and image 77 and the left additional Mediastinum: No gross evidence of adenopathy. Musculoskeletal: No acute osseous abnormalities Soft Tissues/lymph nodes: Unremarkable. Lower neck: No significant findings. Upper Abdomen: Left simple appearing renal cysts. Gastric diverticulum near the left adrenal gland. IMPRESSION: 1. Limited exam due to post timing and motion, there are a few scattered filling defects within the pulmonary arterial subsegmental branches suggestive of pulmonary embolus versus motion artifact. 2. Scattered tree-in-bud opacities in the region of pulmonary emboli possibly representing early pul monary infarct versus airspace disease. [facility], , 04/06/2024 7:27 AM
[2024-04-06] MEDS ORDERED: HEPARIN SODIUM 1,000 UN/ML (10ML VL) IV PRN (07:38)
[2024-04-06] MEDS ORDERED: ALBUTEROL NEBULIZED 2.5 MG/3 ML INHALATION PRN (07:42)
[2024-04-06 08:25] LABS: Basophils % (A) 1 %; Eosinophils # (A) 0.1 k/uL (0-0.7); Eosinophils % (A) 1 %; HCT 42.2 % (34.0-46.0); HGB 14.4 gm/dL (11.4-16.0); Lymphocytes # (A) 0.9 k/uL (1.0-4.8); Lymphocytes % (A) 20 %; MCHC 34.1 g/dL (31.0-37.0); MCV 87.9 fL (80.0-100.0); Mean Platelet Volume 8.1; Monocytes # (A) 0.4 k/uL (0-1.0); Monocytes % (A) 9 %; Neutrophils # (A) 3.1 k/uL (1.3-7.7); Neutrophils % (A) 66 %; Platelet Count 203 k/uL (150-450); RDW 13.9 % (11.5-15.5); WBC 4.6 k/uL (3.8-10.6)
[2024-04-06 08:33] LABS: INR 1.1 (<1.2); Partial Thromboplastin Time 24.7 sec (22.0-30.0); Prothrombin Time 11.8 sec (10.0-12.5)
[2024-04-06] MEDS ORDERED: IPRATROPIUM-ALBUTEROL 3 ML NEB INHALATION PRN (08:44)
[2024-04-06] MEDS: AZITHROMYCIN 500 MG TAB PO SCH (10:21)
[2024-04-06] MEDS: HEPARIN SODIUM 1,000 UN/ML (10ML VL) IV ONE (10:33)
[2024-04-06] MEDS: HEPARIN SOD,PORK IN 0.45% NACL 25,000 UNIT in 0.45% NACL 1 250ML.BAG IV SCH (10:34)
[2024-04-06] MEDS: IPRATROPIUM-ALBUTEROL 3 ML NEB INHALATION SCH (11:12)
[2024-04-06] MEDS: ALBUTEROL NEBULIZED 2.5 MG/3 ML INHALATION STA (11:17)
--- NOTE | 2024-04-06 15:20 | P.CNPUL ---
History of Present Illness Consult date: 04/06/24 Requesting physician: Abbi Nunez Reason for consult: dyspnea, chest pain Chief complaint: Cough, congestion, chest pain History of present illness: This is a very pleasant 48-year-old female patient with a known history of hypertension, hyperlipidemia, obesity, bipolar disorder, previous provoked DVT and associated pulmonary embolism back in 2022 following a prolonged car ride from [place] to [place]. She had been maintained on Eliquis. She also follows at the [facility] for the same. She does have a chronic left lower extremity DVT. She states she is compliant with her medications daily. She presented here to the emergency room early this morning with complai nts of shortness of breath, cough and congestion. She states she did test positive for COVID around Thanksgiving last month and has had a continuous cough and congestion since that time. No sputum production. No hemoptysis. X-ray shows no acute cardiopulmonary process. CT angiogram was limited due to motion artifact however there were no central pulmonary embolisms. Possible few scattered filling defects within the subsegmental branches suggestive of pulmonary embolism versus motion artifact. Scattered tree-in-bud opacities, possible pulmonary infarct versus airspace disease. He is seen today in consultation in the emergency department. She is currently sitting up in a chair. Awake and alert in no acute distress. She has been initiated on a heparin drip. She is maintaining good O2 saturations in the upper 90s on room air. She is afebrile. Slightly tachycardic. Blood pressure stable. She has been initiated on ceftriaxone and azithromycin. On DuoNeb inhalations. Review of Systems REVIEW OF SYSTEMS: CONSTITUTIONAL: Denies any recent significant weight loss or weight gain. EYES: Denies change in vision. EARS, NOSE, MOUTH, THROAT: Denies headaches, denies sore throat. CARDIOVASCULAR: Positive for chest pain, no palpitations no syncopal episodes. RESPIRATORY: Positive for shortness of breath, cough, congestion no hemoptysis. GASTROINTESTINAL: Denies change in appetite, denies abdominal pain GENITOURINARY: Denies hematuria, denies infections. MUSKULOSKELETAL: Denies pain, denies swelling. INTEGUMENTARY: Denies rash, denies eczema. NEUROLOGICAL: Denies recent memory loss, no recent seizure activity. PSYCHIATRIC: Denies anxiety, denies depression. HEMATOLOGIC/LYMPHATIC: Denies anemia, denies enlarged lymph nodes. Past Medical History Past Medical History: Diabetes Mellitus, Pulmonary Embolus (PE) Additional Past Medical History / Comment(s): tachycardia, mitral valve History of Any Multi-Drug Resistant Organisms: None Reported Past Surgical History: Adenoidectomy, Tonsillectomy Past Anesthesia/Blood Transfusion Reactions: No Reported Reaction Past Psychological History: Bipolar Smoking Status: Never smoker Past Alcohol Use History: None Reported Past Drug Use History: None Reported Medications and Allergies Home Medications Medication Instructions Recorded Confirmed Type Acetaminophen [Tylenol Arthritis] 650 mg PO Q8H PRN 04/06/24 04/06/24 History Albuterol Sulfate [Albuterol 2 puff PO RT-Q6H PRN 04/06/24 04/06/24 History Sulfate Hfa] Amoxic-Pot Clav 875-125Mg 1 tab PO Q12HR 04/06/24 04/06/24 History [Augmentin 875-125] Apixaban [Eliquis] 2.5 mg PO BID 04/06/24 04/06/24 History Atorvastatin [Lipitor] 20 mg PO HS 04/06/24 04/06/24 History Alisha Xtdfdo-Ekpwqt-Avvd Hair 1 tab PO DAILY 04/06/24 History Supplement Clindamycin Phosphate [Cleocin T 1 applic TOPICAL DAILY PRN 04/06/24 04/06/24 History 1%] Clobetasol Propionate [Temovate 1 applic TOPICAL DIRECTED 04/06/24 04/06/24 History 0.05% Oint] Ergocalciferol (Vitamin D2) 1,250 mcg PO TORIBIO 04/06/24 04/06/24 History [Drisdol (50,000 Iu)] L.acidoph,Paracasei, B.lactis 1 cap PO DAILY 04/06/24 04/06/24 History [Probiotic] Lidocaine 5% Patch [Lidoderm] 1 patch TOPICAL DAILY PRN 04/06/24 04/06/24 History Medroxyprogesterone Acetate 150 mg IM Q84D 04/06/24 04/06/24 History [Depo-Provera] Nortriptyline HCl [Pamelor] 75 mg PO HS 04/06/24 04/06/24 History Omeprazole [PriLOSEC] 20 mg PO DAILY 04/06/24 04/06/24 History QUEtiapine [SEROquel] 50 mg PO HS 04/06/24 04/06/24 History Tirzepatide [Mounjaro] 5 mg SQ Q8D 04/06/24 04/06/24 History guaiFENesin [Mucinex] 600 mg PO Q12H 04/06/24 04/06/24 History lisinopriL [Zestril] 10 mg PO HS 04/06/24 04/06/24 History valACYclovir HCL [Valtrex] 500 mg PO HS 04/06/24 04/06/24 History Allergies Allergy/AdvReac Type Severity Reaction Status Date / Time No Known Allergies Allergy Verified 04/06/24 09:34 Physical Exam Vitals: Vital Signs Temp Pulse Resp BP Pulse Ox 04/06/24 11:20 110 H 04/06/24 11:12 107 H 04/06/24 10:17 99.4 F 106 H 20 105/73 98 04/06/24 06:53 103 H 16 111/73 97 04/06/24 05:50 112 H 16 101/78 97 04/06/24 04:49 99.5 F 115 H 20 113/70 97 Intake and Output 04/06/24 04/06/24 04/06/24 06:59 14:59 22:59 Other: Weight 113.398 kg GENERAL EXAM: Alert, pleasant 39-year-old female, on room air, up in a chair, comfortable in no apparent distress. HEAD: Normocephalic. EYES: Normal reaction of pupils, equal size. NOSE: Clear with pink turbinates. THROAT: No erythema or exudates. NECK: No masses, no JVD. CHEST: No chest wall deformity. LUNGS: Equal air entry with no crackles, wheeze, rhonchi or dullness. CVS: S1 and S2 normal with no audible murmur, regular rhythm. ABDOMEN: No hepatosplenomegaly, normal bowel sounds, no guarding or rigidity. SPINE: No scoliosis or deformity SKIN: No rashes CENTRAL NERVOUS SYSTEM: No focal deficits, tone is normal in all 4 extremities. EXTREMITIES: There is no peripheral edema. No clubbing, no cyanosis. Periphera l pulses are intact. Results - Laboratory Findings CBC and BMP: 04/06/24 08:12 04/06/24 05:11 PT/INR, D-dimer PT 11.8 sec (10.0-12.5) 04/06/24 08:08 INR 1.1 (<1.2) 04/06/24 08:08 D-Dimer 0.22 mg/L FEU (<0.60) 04/06/24 10:15 Abnormal lab findings: Abnormal Labs 04/06/24 04/06/24 05:11 08:12 Lymphocytes # 0.9 L Sodium 136 L Carbon Dioxide 17 L Glucose 160 H AST 39 H ALT 51 H - Diagnostic Findings Chest x-ray: image reviewed CT scan - chest: image reviewed Assessment and Plan Assessment: Dyspnea with cough, congestion, chest pain secondary to possible early pneumonia in the right upper lobe versus previous COVID infection. Chest x-ray shows no acute cardiopulmonary process. CT angiogram was limited due to motion artifact however there were no central pulmonary embolisms. Possible few scattered filling defects within the subsegmental branches suggestive of pulmonary embolism versus motion artifact. Scattered tree-in-bud opacities, possible pulmonary infarct versus airspace disease. Dimer is negative at 0.22. Procalcitonin is negative at 0.08. Troponins negative x 3. Viral screen nega tive. Recent COVID-19 infection February 2024 History of chronic left lower extremity DVT follows at the [facility] History of left lower extremity DVT/PE back in 2022. Maintained on Eliquis 2.5 twice daily. States medically compliant History of bipolar disorder Hypertension Hyperlipidemia Obesity Plan: The patient was seen and evaluated Imaging, labs and medications reviewed D-dimer was negative at 0.22 Discontinue heparin drip Resume her Eliquis 2.5 twice daily Continue antibiotics for now Continue bronchodilators Stable and on room air Probable discharge in the a.m. We will continue to follow and make further recommendations based on her clinical status I have personally seen and examined the patient, performed the documentation and the assessment and plan as written. Number of minutes spent on the visit: 20 Dictation was produced using [employer] dictation software. Please excuse any grammatical, word or spelling errors.
[2024-04-06 15:56] VITALS: BP 120/82; PULSE 111; RESP 24; TEMP 99
--- NOTE | 2024-04-06 16:31 | P.HPIM ---
History of Present Illness H&P Date: 04/06/24 History of present illness: This is a 48-year-old female with past medical history significant for provoked DVT and associated pulmonary embolism in 2022 following a prolonged car ride from [place] to [place], history of hypertension, hyperlipidemia, obesity, bipolar disorder, currently on Eliquis 2.5 mg twice daily who follows at [facility] for chronic left lower extremity DVT and has been compliant with her medications. Patient presented to ED with a complaint of shortness of breath cough and congestion. Patient stated that she tested positive for COVID around [facility] last month and has been having continuous cough and congestion since that time. Patient reported that cough is sometimes dry and sometimes productive. Patient denied any hemoptysis. Chest x-ray negative for acute process. CT angio was limited due to motion artifact however negative for central PE, showed possible few scattered filling defects within the segmental branches suggestive of pulmonary embolism versus motion artifact. Also showed scattered tree-in-bud opacities, possible pulmonary infarct versus airspace disease. Patient is afebrile, vital stable, currently saturating in the upper 90s on room air. Patient is tachycardic. REVIEW OF SYSTEMS: CONSTITUTIONAL: No fever, no malaise, no fatigue. HEENT: No recent visual problems or hearing problems. Denied any sore throat. CARDIOVASCULAR: No chest pain, orthopnea, PND, no palpitations, no syncope. PULMONARY: Complains of shortness of breath, cough, congestion. GASTROINTESTINAL: No diarrhea, no nausea, no vomiting, no abdominal pain. NEUROLOGICAL: No headaches, no weakness, no numbness. HEMATOLOGICAL: Denies any bleeding or petechiae. GENITOURINARY: Denies any burning micturition, frequency, or urgency. MUSCULOSKELETAL/RHEUMATOLOGICAL: Denies any joint pain, swelling, or any muscle pain. ENDOCRINE: Denies any polyuria or polydipsia. The rest of the 14-point review of systems is negative. PHYSICAL EXAMINATION: GENERAL: The patient is A&O x3, NAD HEENT: EOMI, Sclerae anicteric, Moist Mucous membranes Neck: Supple, Non tender, No JVD PULMONARY: Equal breath souds B/L, No wheezing, No crackles. CARDIOVASCULAR: S1, S2 present. No murmurs, rubs, or gallops. ABDOMEN: Soft, nontender, nondistended, normoactive bowel sounds. No guarding or rebound tenderness. MUSCULOSKELETAL: No edema, No cyanosis. No clubbing. Normal ROM. Intact peripheral pulses. NEUROLOGICAL: CN 2-12 grossly intact. No FND Assessment and plan: Dyspnea with cough congestion and chest pain: Pneumonia Recent COVID-19 infection History of provoked DVT/PE in 2022: History of bipolar disorder Hypertension Hyperlipidemia Obesity Presented with cough congestion, chest pain Tachycardia, on room air Chest x-ray negative for acute process Procalcitonin negative at 0.08 Troponin negative Viral screen negative D-dimer -0.22 CT angioshowed few scattered filling defects within subsegmental branches suggestive of PE versus motion artifact, scattered tree-in-bud opacities Pulmonary consultedfrequently to discontinue heparin drip, resume Eliquis 2.5 mg twice daily Continue antibiotics Rocephin and azithromycin DVT prophylaxis Anticoagulated Monitor vital signs and labs Labs and medication were reviewed. Continue same treatment. Further recommendations as per clinical course of the patient Dictation was produced using [employer] dictation software. please excuse any grammatical, word or spelling errors. Past Medical History Past Medical History: Diabetes Mellitus, Pulmonary Embolus (PE) Additional Past Medical History / Comment(s): tachycardia, mitral valve History of Any Multi-Drug Resistant Organisms: None Reported Past Surgical History: Adenoidectomy, Tonsillectomy Past Anesthesia/Blood Transfusion Reactions: No Reported Reaction Past Psychological History: Bipolar Smoking Status: Never smoker Past Alcohol Use History: None Reported Past Drug Use History: None Reported Medications and Allergies Home Medications Medication Instructions Recorded Confirmed Type Acetaminophen [Tylenol Arthritis] 650 mg PO Q8H PRN 04/06/24 04/06/24 History Albuterol Sulfate [Albuterol 2 puff PO RT-Q6H PRN 04/06/24 04/06/24 History Sulfate Hfa] Amoxic-Pot Clav 875-125Mg 1 tab PO Q12HR 04/06/24 04/06/24 History [Augmentin 875-125] Apixaban [Eliquis] 2.5 mg PO BID 04/06/24 04/06/24 History Atorvastatin [Lipitor] 20 mg PO HS 04/06/24 04/06/24 History Alisha Jbjiyo-Qsxkjn-Ajzl Hair 1 tab PO DAILY 04/06/24 History Supplement Clindamycin Phosphate [Cleocin T 1 applic TOPICAL DAILY PRN 04/06/24 04/06/24 History 1%] Clobetasol Propionate [Temovate 1 applic TOPICAL DIRECTED 04/06/24 04/06/24 History 0.05% Oint] Ergocalciferol (Vitamin D2) 1,250 mcg PO TORIBIO 04/06/24 04/06/24 History [Drisdol (50,000 Iu)] L.acidoph,Paracasei, B.lactis 1 cap PO DAILY 04/06/24 04/06/24 History [Probiotic] Lidocaine 5% Patch [Lidoderm] 1 patch TOPICAL DAILY PRN 04/06/24 04/06/24 Histor y Medroxyprogesterone Acetate 150 mg IM Q84D 04/06/24 04/06/24 History [Depo-Provera] Nortriptyline HCl [Pamelor] 75 mg PO HS 04/06/24 04/06/24 History Omeprazole [PriLOSEC] 20 mg PO DAILY 04/06/24 04/06/24 History QUEtiapine [SEROquel] 50 mg PO HS 04/06/24 04/06/24 History Tirzepatide [Mounjaro] 5 mg SQ Q8D 04/06/24 04/06/24 History guaiFENesin [Mucinex] 600 mg PO Q12H 04/06/24 04/06/24 History lisinopriL [Zestril] 10 mg PO HS 04/06/24 04/06/24 History valACYclovir HCL [Valtrex] 500 mg PO HS 04/06/24 04/06/24 History Allergies Allergy/AdvReac Type Severity Reaction Status Date / Time No Known Allergies Allergy Verified 04/06/24 09:34 Physical Exam Vitals: Vital Signs Temp Pulse Resp BP Pulse Ox 04/06/24 15:53 99.0 F 111 H 24 120/82 95 04/06/24 15:19 119 H 04/06/24 15:11 110 H 04/06/24 11:20 110 H 04/06/24 11:12 107 H 04/06/24 10:17 99.4 F 106 H 20 105/73 98 04/06/24 06:53 103 H 16 111/73 97 04/06/24 05:50 112 H 16 101/78 97 04/06/24 04:49 99.5 F 115 H 20 113/70 97 Intake and Output 04/06/24 04/06/24 04/06/24 06:59 14:59 22:59 Other: Weight 113.398 kg Results CBC & Chem 7: 04/06/24 08:12 04/06/24 05:11 Labs: Abnormal Lab Results - Last 24 Hours (Table) 04/06/24 04/06/24 Range/Units 05:11 08:12 Lymphocytes # 0.9 L (1.0-4.8) k/uL Sodium 136 L (137-145) mmol/L Carbon Dioxide 17 L (22-30) mmol/L Glucose 160 H (74-99) mg/dL AST 39 H (14-36) U/L ALT 51 H (4-34) U/L
[2024-04-06] MEDS: LACTOBACILLUS ACIDOPHILUS/PECT 1 EACH CAPSULE PO SCH (18:06)
[2024-04-06] MEDS ORDERED: BENZONATATE 100 MG CAP PO PRN (19:32)
[2024-04-06] MEDS ORDERED: QUEtiapine 50 MG TAB PO SCH (21:00)
[2024-04-06] MEDS ORDERED: ATORVASTATIN 20 MG TAB PO SCH (21:00)
[2024-04-06] MEDS ORDERED: NORTRIPTYLINE 25 MG CAP PO SCH (21:00)
[2024-04-06] MEDS ORDERED: lisinopriL 10 MG TAB PO SCH (21:00)
[2024-04-06] MEDS ORDERED: valACYclovir HCL 500 MG TAB PO SCH (21:00)
[2024-04-06] MEDS ORDERED: APIXABAN 2.5 MG TABLET PO SCH (21:00)
[2024-04-07] MEDS ORDERED: PANTOPRAZOLE 40 MG TABLET PO SCH (09:00)
[2024-04-07] MEDS ORDERED: ERGOCALCIFEROL 1,250 MCG (50,000 IU) CAPSULE PO SCH (09:00)
[2024-04-07] MEDS ORDERED: ASPIRIN 325 MG TAB PO SCH (09:00)
--- NOTE | 2024-04-07 15:47 | P.DS ---
Providers Date of admission: 04/06/24 07:38 Expected date of discharge: 04/06/24 Attending physician: Abbi Nunez MD Consults: 04/06/24 07:35 Consult Physician Routine Consulting Provider: Margaret Hilario Consult Reason/Comments: Pulmonary embolism Do you want consulting provider notified?: Yes Primary care physician: Nevaeh Mendoza Hospital Course: Discharge diagnoses: Dyspnea with cough congestion and chest pain: Pneumonia Recent COVID-19 infection History of provoked DVT/PE in 2022: History of bipolar disorder Hypertension Hyperlipidemia Obesity Presented with cough congestion, chest pain Tachycardia, on room air Chest x-ray negative for acute process Procalcitonin negative at 0.08 Troponin negative Viral screen negative D-dimer -0.22 CT angioshowed few scattered filling defects within subsegmental branches suggestive of PE versus motion artifact, scattered tree-in-bud opacities Pulmonary consultedfrequently to discontinue heparin drip, resume Eliquis 2.5 mg twice daily Patient received Rocephin azithromycin for antibiotics, procalcitonin was negative. Patient later on left AMA. Hospital course: This is a 48-year-old female with past medical history significant for provoked DVT and associated pulmonary embolism in 2022 following a prolonged car ride from [place] to [place], history of hypertension, hyperlipidemia, obes ity, bipolar disorder, currently on Eliquis 2.5 mg twice daily who follows at [facility] for chronic left lower extremity DVT and has been compliant with her medications. Patient presented to ED with a complaint of shortness of breath cough and congestion. Patient stated that she tested positive for COVID around Thanksgiving last month and has been having continuous cough and congestion since that time. Patient reported that cough is sometimes dry and sometimes productive. Patient denied any hemoptysis. Chest x-ray negative for acute process. CT angio was limited due to motion artifact however negative for central PE, showed possible few scattered filling defects within the segmental branches suggestive of pulmonary embolism versus motion artifact. Also showed scattered tree-in-bud opacities, possible pulmonary infarct versus airspace disease. Patient is afebrile, vital stable, currently saturating in the upper 90s on room air. Patient is tachycardic. Patient was admitted to hospital for further evaluation and management, initially was started on heparin and, later on it was changed to Eliquis per pulmonary, suspicion for PE was low given negative D-dimer, filling defect likely artifact. Patient also started on Rocephin azithromycin for antibiotic, Procalcitonin was negative. Patient was later on left AMA. PHYSICAL EXAMINATION: Left AMA Please refer to physical exam from H&P today. Dictation was produced using [employer] dictation software. please excuse any grammatical, word or spelling errors. Plan - Discharge Summary New Discharge Prescriptions: No Action guaiFENesin [Mucinex] 600 mg PO Q12H Albuterol Sulfate [Albuterol Sulfate Hfa] 2 puff PO RT-Q6H PRN PRN Reason: Shortness Of Breath Apixaban [Eliquis] 2.5 mg PO BID Omeprazole [PriLOSEC] 20 mg PO DAILY Acetaminophen [Tylenol Arthritis] 650 mg PO Q8H PRN PRN Reason: Fever And/ Or Pain Amoxic-Pot Clav 875-125Mg [Augmentin 875-125] 1 tab PO Q12HR valACYclovir HCL [Valtrex] 500 mg PO HS Clobetasol Propionate [Temovate 0.05% Oint] 1 applic TOPICAL DIRECTED Clindamycin Phosphate [Cleocin T 1%] 1 applic TOPICAL DAILY PRN PRN Reason: Acne Tirzepatide [Mounjaro] 5 mg SQ Q8D Ergocalciferol (Vitamin D2) [Drisdol (50,000 Iu)] 1,250 mcg PO TORIBIO Medroxyprogesterone Acetate [Depo-Provera] 150 mg IM Q84D Atorvastatin [Lipitor] 20 mg PO HS lisinopriL [Zestril] 10 mg PO HS QUEtiapine [SEROquel] 50 mg PO HS Nortriptyline HCl [Pamelor] 75 mg PO HS Lidocaine 5% Patch [Lidoderm] 1 patch TOPICAL DAILY PRN PRN Reason: Arthritis L.acidoph,Paracasei, B.lactis [Probiotic] 1 cap PO DAILY Alisha Htscoc-Qljmrg-Ipbi Hair Supplement 1 tab PO DAILY Discharge Medication List Acetaminophen [Tylenol Arthritis] 650 mg PO Q8H PRN 04/06/24 [History] Albuterol Sulfate [Albuterol Sulfate Hfa] 2 puff PO RT-Q6H PRN 04/06/24 [History] Amoxic-Pot Clav 875-125Mg [Augmentin 875-125] 1 tab PO Q12HR 04/06/24 [History] Apixaban [Eliquis] 2.5 mg PO BID 04/06/24 [History] Atorvastatin [Lipitor] 20 mg PO HS 04/06/24 [History] Alisha Htlrvf-Vcryrm-Urle Hair Supplement 1 tab PO DAILY 04/06/24 [History] Clindamycin Phosphate [Cleocin T 1%] 1 applic TOPICAL DAILY PRN 04/06/24 [History] Clobetasol Propionate [Temovate 0.05% Oint] 1 applic TOPICAL DIRECTED 04/06/24 [History] Ergocalciferol (Vitamin D2) [Drisdol (50,000 Iu)] 1,250 mcg PO TORIBIO 04/06/24 [History] L.acidoph,Paracasei, B.lactis [Probiotic] 1 cap PO DAILY 04/06/24 [History] Lidocaine 5% Patch [Lidoderm] 1 patch TOPICAL DAILY PRN 04/06/24 [History] Medroxyprogesterone Acetate [Depo-Provera] 150 mg IM Q84D 04/06/24 [History] Nortriptyline HCl [Pamelor] 75 mg PO HS 04/06/24 [History] Omeprazole [PriLOSEC] 20 mg PO DAILY 04/06/24 [History] QUEtiapine [SEROquel] 50 mg PO HS 04/06/24 [History] Tirzepatide [Mounjaro] 5 mg SQ Q8D 04/06/24 [History] guaiFENesin [Mucinex] 600 mg PO Q12H 04/06/24 [History] lisinopriL [Zestril] 10 mg PO HS 04/06/24 [History] valACYclovir HCL [Valtrex] 500 mg PO HS 04/06/24 [History] Follow up Appointment(s)/Referral(s): Nevaeh Mendoza DO [Primary Care Provider] - 1-2 days Discharge Disposition: LEFT AGAINST MEDICAL ADVICE
== END 2024-04-06 19:55 | disposition left against medical advice (07) ==
LOC: EC 04:44 → 1SOBS 07:38 → INTOOBSV 07:38 → 1SOBS 08:33 → 3SCARD 08:33 → UNDODISIN 19:55
PROVIDERS: ADMIT Internal Medicine; ATTEND Internal Medicine
DX: J18.9 Pneumonia, unspecified organism (principal); E78.5 Hyperlipidemia, unspecified; I45.2 Bifascicular block; I10 Essential (primary) hypertension; I82.502 Chronic embolism and thrombosis of unspecified deep veins of left lower extremity; F31.9 Bipolar disorder, unspecified; R00.0 Tachycardia, unspecified; E66.9 Obesity, unspecified; Z68.34 Body mass index [BMI] 34.0-34.9, adult; Z79.01 Long term (current) use of anticoagulants; Z79.85 Long-term (current) use of injectable non-insulin antidiabetic drugs; Z79.899 Other long term (current) drug therapy; Z11.52 Encounter for screening for COVID-19; Z11.59 Encounter for screening for other viral diseases; Z86.16 Personal history of COVID-19; Z86.711 Personal history of pulmonary embolism; Z53.29 Procedure and treatment not carried out because of patient's decision for other reasons
CPT/HCPCS: 96376; 96365; 96366; 99285; 36415; 94640 ×2; 93005; 85379; 80053; 83605; 84484; 85025; 85610; 85730; 84145; 87636; 71046; 71275; G0378; J0696; J1644 ×2